=== PATIENT | male | born 1960 | race Caucasian/White ===

== ENCOUNTER 2017-04-18 22:03 | Emergency (ER) | payer MEDICAID, MEDICARE, OTHER ==
[~2017-04-18] VITALS: Ht 165.1 cm; Wt 81.5 kg
[~2017-04-18 22:03] MED LIST: ALBU8HFA IH; BENZ0.5T32 PO; BUPR100SR PO; BUSP10TA23 PO; CHOL200035 PO; PANT40TA25 PO; QUET200T PO; TIZA4TAB4 PO
[2017-04-18] MEDS ORDERED: BECL8.7A7 PO (23:00)
[2017-04-18] MEDS ORDERED: PHEN100C23 PO (23:00)
[2017-04-18 23:35] LABS: BASOPHILS # (AUTO) 0.07 K/uL (0.00-0.20); BASOPHILS % (AUTO) 0.7 % (0.0-2.0); EOSINOPHILS # (AUTO) 0.46 K/uL (0.00-0.70); EOSINOPHILS % (AUTO) 4.22 % (1.0-6.0); HEMATOCRIT 43.5 % (41-53); HEMOGLOBIN 14.7 g/dL (13.5-17.5); LYMPHOCYTES # (AUTO) 3.6 K/uL (1.0-4.8); LYMPHOCYTES % (AUTO) 33.4 % (22.0-44.0); MEAN CORPUSCULAR HEMOGLOBIN 32.7 pg (26.0-34.0); MEAN CORPUSCULAR HGB CONC 33.7 G/dL (31.0-37.0); MEAN CORPUSCULAR VOLUME 97 fL (80-100); MONOCYTES # (AUTO) 1.2 K/uL (0.1-1.0); NEUTROPHILS # (AUTO) 5.5 K/uL (1.8-7.7); NEUTROPHILS % (AUTO) 50.8 % (40.0-70.0); PLATELET COUNT (AUTO) 265 K/uL (150-450); RED BLOOD CELL COUNT(AUTO) 4.49 MIL/uL (4.50-5.90); RED CELL DISTRIBUTION WIDTH 15.3 % (11.5-14.5)
[2017-04-18 23:40] LABS: APPEARANCE,URINE CLEAR (CLEAR); BILIRUBIN,URINE NEGATIVE (NEGATIVE); GLUCOSE, URINE (UA) NEGATIVE (NEGATIVE); KETONES,URINE NEGATIVE (NEGATIVE); LEUKOCYTE ESTERASE ,URINE NEGATIVE (NEGATIVE); NITRATE,URINE NEGATIVE (NEGATIVE); OCCULT BLOOD,URINE NEGATIVE (NEGATIVE); PROTEIN,URINE NEGATIVE (NEGATIVE); UROBILINOGEN,URINE 0.2 mg/dL (<=1.0)
[2017-04-18 23:51] LABS: ANION GAP 10 mmol/L (8-16); CALCIUM, TOTAL 8.9 mg/dL (8.8-10.5); CARBON DIOXIDE 26 mmol/L (22-29); CHLORIDE 104 mmol/L (98-107); CREATININE 0.92 mg/dL (0.60-1.30); GLOMERULAR FILTR. RATE CALC > 60 mL/min (>60); GLUCOSE,RANDOM 108 mg/dL (70-110); POTASSIUM 4.1 mmol/L (3.5-5.1); SODIUM SERUM 140 mmol/L (136-145); UREA NITROGEN, BLOOD 16 mg/dL (7-18)
[2017-04-18 23:59] LABS: ALANINE AMINOTRANSFERASE 33 U/L (12-78); ALBUMIN 3.7 g/dL (3.4-5.0); ALKALINE PHOSPHATASE 85 U/L (46-116); ASPARTATE AMINOTRANSFERASE 25 U/L (15-37); BILIRUBIN,TOTAL 0.3 mg/dL (0.1-1.0); LIPASE 162 U/L (73-393); TOTAL PROTEIN, SERUM 7.7 g/dL (6.4-8.2)
[2017-04-19] MEDS ORDERED: ONDANSETRON HCL 4 MG/2 ML VIAL IVP ONE (01:00)
[2017-04-19] MEDS ORDERED: SODIUM CHLORIDE 0.9% 1,000 ML IV ONE (01:00)
[2017-04-19] MEDS ORDERED: MORPHINE SULFATE 4 MG/ML SYRINGE IVP ONE ×2 (01:00→03:00)
[2017-04-19 03:16] VITALS: BP 123/65
== END 2017-04-19 03:26 | disposition home or self-care (01) ==
LOC: EMS 22:05
DX: S39.012A Strain of muscle, fascia and tendon of lower back, initial encounter (principal); R11.0 Nausea; R19.7 Diarrhea, unspecified; J45.909 Unspecified asthma, uncomplicated; J44.9 Chronic obstructive pulmonary disease, unspecified; F17.210 Nicotine dependence, cigarettes, uncomplicated; Z88.6 Allergy status to analgesic agent; Z88.2 Allergy status to sulfonamides; Z91.010 Allergy to peanuts; W06.XXXA Fall from bed, initial encounter; Y93.89 Activity, other specified; Y92.89 Other specified places as the place of occurrence of the external cause; Y99.8 Other external cause status
CPT/HCPCS: 36415; 80053; 81003; 83690; 84484; 85025; 93005; 96361; 96374; 96375; 96376; 99285; J2270; J2405; J7030

== ENCOUNTER 2020-12-09 17:17 | Emergency (ER) | payer MEDICARE, MEDICAID ==
[~2020-12-09] VITALS: Ht 180.3 cm; Wt 108.2 kg
[~2020-12-09 17:17] MED LIST changes: +BECL8.7A7 PO; -BENZ0.5T32 PO; -BUPR100SR PO; -BUSP10TA23 PO; -CHOL200035 PO; -PANT40TA25 PO; +PHEN100C23 PO; -QUET200T PO; -TIZA4TAB4 PO
[2020-12-09 18:55] LABS: BASOPHILS % (AUTO) 0.6 % (0.0-2.0); EOSINOPHILS % (AUTO) 0.2 % (1.0-6.0); HEMATOCRIT 44.1 % (41-53); LYMPHOCYTES # (AUTO) 2.8 K/uL (1.0-4.8); LYMPHOCYTES % (AUTO) 21.4 % (22.0-44.0); MEAN CORPUSCULAR HEMOGLOBIN 27.3 pg (26.0-34.0); MEAN CORPUSCULAR HGB CONC 31.8 G/dL (31.0-37.0); MEAN CORPUSCULAR VOLUME 86 fL (80-100); MONOCYTES # (AUTO) 1.2 K/uL (0.1-1.0); MONOCYTES % (AUTO) 9.4 % (2.0-9.0); NEUTROPHILS % (AUTO) 68.4 % (40.0-70.0); PLATELET COUNT (AUTO) 627 K/uL (150-450); RED BLOOD CELL COUNT(AUTO) 5.13 MIL/uL (4.50-5.90); RED CELL DISTRIBUTION WIDTH 18.7 % (11.5-14.5)
[2020-12-09 19:22] LABS: ALANINE AMINOTRANSFERASE 29 U/L (12-78); ALBUMIN 4.1 g/dL (3.4-5.0); ALKALINE PHOSPHATASE 121 U/L (46-116); ANION GAP 15 mmol/L (8-16); ASPARTATE AMINOTRANSFERASE 19 U/L (15-37); BILIRUBIN,TOTAL 0.4 mg/dL (0.1-1.0); CALCIUM, TOTAL 8.9 mg/dL (8.8-10.5); CARBON DIOXIDE 21 mmol/L (22-29); CHLORIDE 103 mmol/L (98-107); CREATINE KINASE, TOTAL ONLY 90 U/L (39-308); CREATININE 1.06 mg/dL (0.60-1.30); GLOMERULAR FILTR. RATE CALC > 60 mL/min (>60); GLUCOSE,RANDOM 149 mg/dL (70-110); PHENYTOIN (DILANTIN) 0.9 mcg/mL (10.0-20.0); SODIUM SERUM 139 mmol/L (136-145); TOTAL PROTEIN, SERUM 9.1 g/dL (6.4-8.2); UREA NITROGEN, BLOOD 15 mg/dL (7-18)
[2020-12-09] MEDS ORDERED: HYDROCODONE/ACETAMINOPHEN 5-325 MG TABLET PO ONE (20:15)
[2020-12-09] MEDS ORDERED: ONDANSETRON HCL 4 MG TABLET PO ONE (20:30)
[2020-12-09] MEDS ORDERED: POTASSIUM CHLORIDE 20 MEQ ER TABLET PO ONE (20:45)
[2020-12-09 21:27] VITALS: BP 134/67
== END 2020-12-09 23:56 | disposition home or self-care (01) ==
LOC: EMS 17:19
DX: G89.29 Other chronic pain (principal); M25.511 Pain in right shoulder; J45.909 Unspecified asthma, uncomplicated; F31.9 Bipolar disorder, unspecified; F20.9 Schizophrenia, unspecified; W19.XXXA Unspecified fall, initial encounter; Y93.89 Activity, other specified; Y92.89 Other specified places as the place of occurrence of the external cause; Y99.8 Other external cause status
CPT/HCPCS: 36415; 70450; 72125; 73030; 80053; 80185; 82550; 85025; 99285; Q0162

== ENCOUNTER 2022-02-22 11:35 | Inpatient (IN) | payer MEDICARE, MEDICAID ==
[~2022-02-22] VITALS: Ht 180.3 cm; Wt 76.5 kg
[~2022-02-22 11:35] MED LIST changes: -ALBU8HFA IH; -BECL8.7A7 PO; +BENZ2TAB76 PO; +BUPR-72 PO; +DIVA-112 PO; -PHEN100C23 PO; +QUET200T30 PO
[2022-02-22 13:06] LABS: COVID AG,FIA SOURCE NASAL SWAB
[2022-02-22 13:10] LABS: BASOPHILS % (AUTO) 0.8 % (0.0-2.0); EOSINOPHILS % (AUTO) 0.9 % (1.0-6.0); HEMATOCRIT 40.1 % (41-53); HEMOGLOBIN 13.5 g/dL (13.5-17.5); LYMPHOCYTES # (AUTO) 1.7 K/uL (1.0-4.8); LYMPHOCYTES % (AUTO) 18.2 % (22.0-44.0); MEAN CORPUSCULAR HEMOGLOBIN 31.9 pg (26.0-34.0); MEAN CORPUSCULAR HGB CONC 33.5 G/dL (31.0-37.0); MEAN CORPUSCULAR VOLUME 95 fL (80-100); MONOCYTES # (AUTO) 0.9 K/uL (0.1-1.0); MONOCYTES % (AUTO) 9.5 % (2.0-9.0); NEUTROPHILS # (AUTO) 6.6 K/uL (1.8-7.7); NEUTROPHILS % (AUTO) 70.6 % (40.0-70.0); PLATELET COUNT (AUTO) 366 K/uL (150-450); RED BLOOD CELL COUNT(AUTO) 4.22 MIL/uL (4.50-5.90); RED CELL DISTRIBUTION WIDTH 14.7 % (11.5-14.5)
[2022-02-22 13:18] LABS: ANION GAP 14 mmol/L (8-16); CALCIUM, TOTAL 9.4 mg/dL (8.8-10.5); CARBON DIOXIDE 21 mmol/L (22-29); CHLORIDE 105 mmol/L (98-107); CREATININE 0.78 mg/dL (0.60-1.30); GLUCOSE,RANDOM 105 mg/dL (70-110); POTASSIUM 3.7 mmol/L (3.5-5.1); SODIUM SERUM 140 mmol/L (136-145); UREA NITROGEN, BLOOD 16 mg/dL (7-18)
[2022-02-22 13:19] LABS: GLOMERULAR FILTR. RATE CALC > 60 mL/min (>60)
[2022-02-22 13:23] LABS: ALANINE AMINOTRANSFERASE 21 U/L (12-78); ALBUMIN 3.8 g/dL (3.4-5.0); ALKALINE PHOSPHATASE 74 U/L (46-116); ASPARTATE AMINOTRANSFERASE 21 U/L (15-37); BILIRUBIN,TOTAL 0.7 mg/dL (0.1-1.0); TOTAL PROTEIN, SERUM 7.8 g/dL (6.4-8.2)
[2022-02-22 17:49] VITALS: BP 128/80
[2022-02-22] MEDS ORDERED: INFLUENZA VIRUS VACCINE QVS 2022-23 (6MO+)/PF 60 MCG/0.5 ML SYRINGE IM. ONE (18:45)
[2022-02-22] MEDS ORDERED: PNEUMOCOCCAL VACCINE POLYVALENT 0.5 ML VIAL [PPSV23] IM. ONE (18:45)
[2022-02-22] MEDS: LORazepam 2 MG TABLET PO PRN (20:55)
[2022-02-22] MEDS: HALOPERIDOL 5 MG TABLET PO PRN (20:56)
[2022-02-22 21:04] VITALS: BP 135/69
[2022-02-22] MEDS ORDERED: ACETAMINOPHEN 325 MG TABLET PO PRN (21:15)
[2022-02-22 23:07] VITALS: BP 126/72
[2022-02-23 08:00] VITALS: BP 130/76
[2022-02-23] MEDS ORDERED: BECLOMETHASONE DIPR HFA 80 MCG/PUFF 10.6 GM INHALER IH SCH (09:00)
[2022-02-23] MEDS: PHENYTOIN SODIUM 100 MG ER CAPSULE PO SCH ×2 (09:00→09:34)
[2022-02-23] MEDS: OMEPRAZOLE 20 MG CAPSULE PO SCH (09:33)
[2022-02-23] MEDS: FLUTICASONE/VILANTEROL 100-25 MCG/INH INHALER [14] IH SCH (09:35)
[2022-02-23] MEDS: MONTELUKAST SODIUM 10 MG TABLET PO SCH (09:35)
[2022-02-23] MEDS: DIVALPROEX SODIUM 500 MG DR TABLET PO SCH ×2 (11:06→16:06)
[2022-02-23] MEDS: BuPROPion HCL 150 MG SR TABLET PO SCH ×2 (11:31→17:42)
[2022-02-23] MEDS: BENZTROPINE MESYLATE 2 MG TABLET PO SCH (11:31)
[2022-02-23] MEDS ORDERED: GuaiFENesin/D-METHORPHAN [SUGAR-FREE] 200-20MG/10 ML SYRUP UDCUP PO PRN (14:30)
[2022-02-23] MEDS ORDERED: LOPERAMIDE HCL 2 MG CAPSULE PO PRN (14:30)
[2022-02-23] MEDS ORDERED: DOCUSATE SODIUM 100 MG CAPSULE PO PRN (14:30)
[2022-02-23] MEDS ORDERED: ONDANSETRON HCL 4 MG TABLET PO PRN (14:30)
[2022-02-23] MEDS ORDERED: NICOTINE 14 MG/24 HOUR PATCH TD PRN (14:30)
[2022-02-23] MEDS ORDERED: MAGNESIUM HYDROXIDE SUSPENSION 30 ML UDCUP PO PRN (14:30)
[2022-02-23] MEDS ORDERED: CloNIDine HCL 0.1 MG TABLET PO PRN (14:30)
[2022-02-23] MEDS ORDERED: PETROLATUM,WHITE 28 GM JELLY TP PRN (14:30)
[2022-02-23] MEDS: QUEtiapine FUMARATE 200 MG TABLET PO SCH (21:19)
[2022-02-24 08:30] VITALS: BP 99/60
[2022-02-24] MEDS: OMEPRAZOLE 20 MG CAPSULE PO SCH (08:56)
[2022-02-24] MEDS: BuPROPion HCL 150 MG SR TABLET PO SCH ×2 (08:56→16:48)
[2022-02-24] MEDS: DIVALPROEX SODIUM 500 MG DR TABLET PO SCH ×3 (08:56→17:00)
[2022-02-24] MEDS: MONTELUKAST SODIUM 10 MG TABLET PO SCH (08:57)
[2022-02-24] MEDS: FLUTICASONE/VILANTEROL 100-25 MCG/INH INHALER [14] IH SCH (08:57)
[2022-02-24] MEDS: BENZTROPINE MESYLATE 2 MG TABLET PO SCH (08:58)
[2022-02-24] MEDS: PHENYTOIN SODIUM 100 MG ER CAPSULE PO SCH (09:00)
[2022-02-24 16:00] VITALS: BP 110/63
[2022-02-24 16:56] VITALS: BP 110/63
[2022-02-24] MEDS: LORazepam 2 MG TABLET PO PRN (18:27)
[2022-02-24] MEDS: QUEtiapine FUMARATE 200 MG TABLET PO SCH (20:59)
[2022-02-25] MEDS: BENZTROPINE MESYLATE 2 MG TABLET PO SCH (08:30)
[2022-02-25] MEDS: FLUTICASONE/VILANTEROL 100-25 MCG/INH INHALER [14] IH SCH (08:30)
[2022-02-25] MEDS: OMEPRAZOLE 20 MG CAPSULE PO SCH (08:31)
[2022-02-25] MEDS: PHENYTOIN SODIUM 100 MG ER CAPSULE PO SCH (08:31)
[2022-02-25] MEDS: BuPROPion HCL 150 MG SR TABLET PO SCH ×2 (08:31→16:48)
[2022-02-25] MEDS: DIVALPROEX SODIUM 500 MG DR TABLET PO SCH ×2 (08:31→16:49)
[2022-02-25] MEDS: MONTELUKAST SODIUM 10 MG TABLET PO SCH (08:31)
[2022-02-25] MEDS: LORazepam 2 MG TABLET PO PRN ×2 (14:38→20:05)
[2022-02-25 16:00] VITALS: BP 98/65
[2022-02-25] MEDS: QUEtiapine FUMARATE 200 MG TABLET PO SCH (20:05)
[2022-02-26] MEDS: DIVALPROEX SODIUM 500 MG DR TABLET PO SCH ×3 (09:00→17:00)
[2022-02-26] MEDS: BENZTROPINE MESYLATE 2 MG TABLET PO SCH (10:52)
[2022-02-26] MEDS: MONTELUKAST SODIUM 10 MG TABLET PO SCH (10:52)
[2022-02-26] MEDS: PHENYTOIN SODIUM 100 MG ER CAPSULE PO SCH (10:52)
[2022-02-26] MEDS: FLUTICASONE/VILANTEROL 100-25 MCG/INH INHALER [14] IH SCH (10:53)
[2022-02-26] MEDS: BuPROPion HCL 150 MG SR TABLET PO SCH ×2 (10:53→17:11)
[2022-02-26] MEDS: LORazepam 2 MG TABLET PO PRN ×2 (10:54→17:12)
[2022-02-26] MEDS: OMEPRAZOLE 20 MG CAPSULE PO SCH (10:54)
[2022-02-26] MEDS: QUEtiapine FUMARATE 200 MG TABLET PO SCH (21:56)
[2022-02-27] MEDS: PHENYTOIN SODIUM 100 MG ER CAPSULE PO SCH (08:57)
[2022-02-27] MEDS: BuPROPion HCL 150 MG SR TABLET PO SCH ×2 (08:57→16:08)
[2022-02-27] MEDS: BENZTROPINE MESYLATE 2 MG TABLET PO SCH (08:57)
[2022-02-27] MEDS: MONTELUKAST SODIUM 10 MG TABLET PO SCH (08:57)
[2022-02-27] MEDS: OMEPRAZOLE 20 MG CAPSULE PO SCH (08:59)
[2022-02-27] MEDS: DIVALPROEX SODIUM 500 MG DR TABLET PO SCH ×2 (08:59→16:08)
[2022-02-27] MEDS: FLUTICASONE/VILANTEROL 100-25 MCG/INH INHALER [14] IH SCH (10:27)
[2022-02-27] MEDS: LORazepam 2 MG TABLET PO PRN (14:37)
[2022-02-27] MEDS: QUEtiapine FUMARATE 200 MG TABLET PO SCH (22:00)
[2022-02-28 08:00] VITALS: BP 117/81
[2022-02-28 09:12] LABS: COVID AG,FIA SOURCE NASAL SWAB
[2022-02-28] MEDS: PHENYTOIN SODIUM 100 MG ER CAPSULE PO SCH (09:51)
[2022-02-28] MEDS: LORazepam 2 MG TABLET PO PRN ×3 (09:51→18:31)
[2022-02-28] MEDS: BENZTROPINE MESYLATE 2 MG TABLET PO SCH (09:51)
[2022-02-28] MEDS: OMEPRAZOLE 20 MG CAPSULE PO SCH (09:51)
[2022-02-28] MEDS: DIVALPROEX SODIUM 500 MG DR TABLET PO SCH ×2 (09:51→17:26)
[2022-02-28] MEDS: ACETAMINOPHEN 325 MG TABLET PO PRN (09:51)
[2022-02-28] MEDS: MONTELUKAST SODIUM 10 MG TABLET PO SCH (09:51)
[2022-02-28] MEDS: BuPROPion HCL 150 MG SR TABLET PO SCH ×2 (09:51→17:27)
[2022-02-28] MEDS: FLUTICASONE/VILANTEROL 100-25 MCG/INH INHALER [14] IH SCH (09:54)
[2022-02-28] MEDS: QUEtiapine FUMARATE 200 MG TABLET PO SCH (20:39)
[2022-03-01 08:32] VITALS: BP 92/54
[2022-03-01] MEDS: DIVALPROEX SODIUM 500 MG DR TABLET PO SCH ×2 (09:00→17:32)
[2022-03-01] MEDS: OMEPRAZOLE 20 MG CAPSULE PO SCH (10:45)
[2022-03-01] MEDS: PHENYTOIN SODIUM 100 MG ER CAPSULE PO SCH (10:45)
[2022-03-01] MEDS: MONTELUKAST SODIUM 10 MG TABLET PO SCH (10:45)
[2022-03-01] MEDS: MAG HYDROX/AL HYDROX/SIMETH ES 30 ML SUSPENSION UDCUP PO PRN (10:46)
[2022-03-01] MEDS: BuPROPion HCL 150 MG SR TABLET PO SCH ×2 (10:46→17:32)
[2022-03-01] MEDS: FLUTICASONE/VILANTEROL 100-25 MCG/INH INHALER [14] IH SCH (10:47)
[2022-03-01] MEDS: BENZTROPINE MESYLATE 2 MG TABLET PO SCH (10:49)
[2022-03-01 12:25] VITALS: BP 139/98
[2022-03-01] MEDS: LORazepam 2 MG TABLET PO PRN ×3 (12:29→20:31)
[2022-03-01 17:28] VITALS: BP 136/90
[2022-03-01] MEDS: TraMADol HCL 50 MG TABLET PO PRN (17:31)
[2022-03-01] MEDS: QUEtiapine FUMARATE 200 MG TABLET PO SCH (20:31)
[2022-03-01] MEDS: ZOLPIDEM TARTRATE 10 MG TABLET PO PRN (22:38)
[2022-03-02] MEDS: BENZTROPINE MESYLATE 2 MG TABLET PO SCH (08:17)
[2022-03-02] MEDS: BuPROPion HCL 150 MG SR TABLET PO SCH ×2 (08:17→16:11)
[2022-03-02] MEDS: DIVALPROEX SODIUM 500 MG DR TABLET PO SCH ×2 (08:17→16:11)
[2022-03-02] MEDS: MONTELUKAST SODIUM 10 MG TABLET PO SCH (08:17)
[2022-03-02] MEDS: PHENYTOIN SODIUM 100 MG ER CAPSULE PO SCH (08:17)
[2022-03-02] MEDS: OMEPRAZOLE 20 MG CAPSULE PO SCH (08:17)
[2022-03-02] MEDS: FLUTICASONE/VILANTEROL 100-25 MCG/INH INHALER [14] IH SCH (08:18)
[2022-03-02 08:48] VITALS: BP 103/69
[2022-03-02] MEDS: QUEtiapine FUMARATE 100 MG TABLET PO SCH (09:29)
[2022-03-02 15:59] VITALS: BP 119/84
[2022-03-02 16:01] VITALS: BP 119/84
[2022-03-02] MEDS: ACETAMINOPHEN 325 MG TABLET PO PRN (16:11)
[2022-03-02] MEDS: LORazepam 2 MG TABLET PO PRN (18:44)
[2022-03-02] MEDS: ZOLPIDEM TARTRATE 10 MG TABLET PO PRN (20:48)
[2022-03-02] MEDS: QUEtiapine FUMARATE 200 MG TABLET PO SCH (20:48)
[2022-03-03 08:07] VITALS: BP 132/82
[2022-03-03] MEDS: PHENYTOIN SODIUM 100 MG ER CAPSULE PO SCH (09:08)
[2022-03-03] MEDS: OMEPRAZOLE 20 MG CAPSULE PO SCH (09:08)
[2022-03-03] MEDS: FLUTICASONE/VILANTEROL 100-25 MCG/INH INHALER [14] IH SCH (09:08)
[2022-03-03] MEDS: DIVALPROEX SODIUM 500 MG DR TABLET PO SCH ×2 (09:08→16:03)
[2022-03-03] MEDS: BuPROPion HCL 150 MG SR TABLET PO SCH ×2 (09:08→16:03)
[2022-03-03] MEDS: BENZTROPINE MESYLATE 2 MG TABLET PO SCH (09:08)
[2022-03-03] MEDS: QUEtiapine FUMARATE 100 MG TABLET PO SCH (09:08)
[2022-03-03] MEDS: MONTELUKAST SODIUM 10 MG TABLET PO SCH (09:09)
[2022-03-03] MEDS: LORazepam 2 MG TABLET PO PRN ×3 (09:10→21:06)
[2022-03-03 12:09] VITALS: BP 128/84
[2022-03-03] MEDS: TraMADol HCL 50 MG TABLET PO PRN (12:09)
[2022-03-03] MEDS: HALOPERIDOL 5 MG TABLET PO PRN ×2 (16:04→21:06)
[2022-03-03 16:08] VITALS: BP 134/78
[2022-03-03] MEDS: QUEtiapine FUMARATE 200 MG TABLET PO SCH (21:06)
[2022-03-03] MEDS: ZOLPIDEM TARTRATE 10 MG TABLET PO PRN (22:00)
[2022-03-04] MEDS: QUEtiapine FUMARATE 100 MG TABLET PO SCH (09:21)
[2022-03-04] MEDS: BENZTROPINE MESYLATE 2 MG TABLET PO SCH (09:21)
[2022-03-04] MEDS: PHENYTOIN SODIUM 100 MG ER CAPSULE PO SCH (09:21)
[2022-03-04] MEDS: FLUTICASONE/VILANTEROL 100-25 MCG/INH INHALER [14] IH SCH (09:21)
[2022-03-04] MEDS: DIVALPROEX SODIUM 500 MG DR TABLET PO SCH ×2 (09:21→16:26)
[2022-03-04] MEDS: MONTELUKAST SODIUM 10 MG TABLET PO SCH (09:21)
[2022-03-04] MEDS: BuPROPion HCL 150 MG SR TABLET PO SCH ×2 (09:21→16:26)
[2022-03-04] MEDS: OMEPRAZOLE 20 MG CAPSULE PO SCH (09:21)
[2022-03-04 10:02] VITALS: BP 121/69
[2022-03-04] MEDS: LORazepam 2 MG TABLET PO PRN (12:49)
[2022-03-04 16:16] VITALS: BP 143/66
[2022-03-04 19:12] VITALS: BP 131/73
[2022-03-04] MEDS: TraMADol HCL 50 MG TABLET PO PRN (19:12)
[2022-03-04] MEDS: QUEtiapine FUMARATE 200 MG TABLET PO SCH (20:32)
[2022-03-04] MEDS: MAG HYDROX/AL HYDROX/SIMETH ES 30 ML SUSPENSION UDCUP PO PRN (20:40)
[2022-03-05 02:57] VITALS: BP 130/83
[2022-03-05] MEDS: TraMADol HCL 50 MG TABLET PO PRN ×2 (02:57→20:56)
[2022-03-05 07:30] VITALS: BP 111/73
[2022-03-05] MEDS: PHENYTOIN SODIUM 100 MG ER CAPSULE PO SCH (08:59)
[2022-03-05] MEDS: BuPROPion HCL 150 MG SR TABLET PO SCH ×2 (08:59→16:13)
[2022-03-05 09:00] VITALS: BP 111/73
[2022-03-05] MEDS: MONTELUKAST SODIUM 10 MG TABLET PO SCH (09:00)
[2022-03-05] MEDS: FLUTICASONE/VILANTEROL 100-25 MCG/INH INHALER [14] IH SCH (09:00)
[2022-03-05] MEDS: OMEPRAZOLE 20 MG CAPSULE PO SCH (09:02)
[2022-03-05] MEDS: DIVALPROEX SODIUM 500 MG DR TABLET PO SCH ×2 (09:02→16:12)
[2022-03-05] MEDS: QUEtiapine FUMARATE 100 MG TABLET PO SCH (09:02)
[2022-03-05] MEDS: BENZTROPINE MESYLATE 2 MG TABLET PO SCH (09:06)
[2022-03-05] MEDS: LORazepam 2 MG TABLET PO PRN ×2 (11:09→18:37)
[2022-03-05] MEDS: QUEtiapine FUMARATE 200 MG TABLET PO SCH (20:55)
[2022-03-05] MEDS: ZOLPIDEM TARTRATE 10 MG TABLET PO PRN (20:55)
[2022-03-05 20:56] VITALS: BP 119/77
[2022-03-06] MEDS: LORazepam 2 MG TABLET PO PRN ×3 (05:09→17:44)
[2022-03-06] MEDS: OMEPRAZOLE 20 MG CAPSULE PO SCH (08:28)
[2022-03-06] MEDS: FLUTICASONE/VILANTEROL 100-25 MCG/INH INHALER [14] IH SCH (08:28)
[2022-03-06] MEDS: DIVALPROEX SODIUM 500 MG DR TABLET PO SCH ×2 (08:29→16:07)
[2022-03-06] MEDS: QUEtiapine FUMARATE 100 MG TABLET PO SCH (08:29)
[2022-03-06] MEDS: PHENYTOIN SODIUM 100 MG ER CAPSULE PO SCH (08:29)
[2022-03-06] MEDS: MONTELUKAST SODIUM 10 MG TABLET PO SCH (08:30)
[2022-03-06] MEDS: BuPROPion HCL 150 MG SR TABLET PO SCH ×2 (08:30→16:07)
[2022-03-06] MEDS: BENZTROPINE MESYLATE 2 MG TABLET PO SCH (08:30)
[2022-03-06 09:53] VITALS: BP 116/77
[2022-03-06] MEDS: TraMADol HCL 50 MG TABLET PO PRN ×2 (10:28→17:25)
[2022-03-06 10:30] VITALS: BP 123/85
[2022-03-06 11:30] VITALS: BP 131/97
[2022-03-06] MEDS: HALOPERIDOL 5 MG TABLET PO PRN (13:40)
[2022-03-06 17:00] VITALS: BP 134/66
[2022-03-06 17:20] VITALS: BP 134/66
[2022-03-06] MEDS: QUEtiapine FUMARATE 200 MG TABLET PO SCH (21:16)
[2022-03-07] VITALS (7 sets, daily range): BP systolic 122–155; BP diastolic 70–83
[2022-03-07] MEDS: LORazepam 2 MG TABLET PO PRN ×2 (06:05→20:34)
[2022-03-07] MEDS: TraMADol HCL 50 MG TABLET PO PRN ×3 (06:06→23:34)
[2022-03-07] MEDS: FLUTICASONE/VILANTEROL 100-25 MCG/INH INHALER [14] IH SCH (09:01)
[2022-03-07] MEDS: MONTELUKAST SODIUM 10 MG TABLET PO SCH (09:01)
[2022-03-07] MEDS: BuPROPion HCL 150 MG SR TABLET PO SCH ×2 (09:01→16:30)
[2022-03-07] MEDS: QUEtiapine FUMARATE 100 MG TABLET PO SCH (09:01)
[2022-03-07] MEDS: PHENYTOIN SODIUM 100 MG ER CAPSULE PO SCH (09:01)
[2022-03-07] MEDS: BENZTROPINE MESYLATE 2 MG TABLET PO SCH (09:01)
[2022-03-07] MEDS: OMEPRAZOLE 20 MG CAPSULE PO SCH (09:01)
[2022-03-07] MEDS: DIVALPROEX SODIUM 500 MG DR TABLET PO SCH ×2 (09:02→16:31)
[2022-03-07] MEDS: QUEtiapine FUMARATE 200 MG TABLET PO SCH (21:53)
[2022-03-08 05:59] LABS: COVID AG,FIA SOURCE NASAL SWAB
[2022-03-08] MEDS: LORazepam 2 MG TABLET PO PRN ×2 (06:29→12:51)
[2022-03-08] MEDS: OMEPRAZOLE 20 MG CAPSULE PO SCH (08:28)
[2022-03-08] MEDS: BENZTROPINE MESYLATE 2 MG TABLET PO SCH (08:28)
[2022-03-08] MEDS: DIVALPROEX SODIUM 500 MG DR TABLET PO SCH ×2 (08:28→16:07)
[2022-03-08] MEDS: PHENYTOIN SODIUM 100 MG ER CAPSULE PO SCH (08:28)
[2022-03-08] MEDS: QUEtiapine FUMARATE 100 MG TABLET PO SCH (08:28)
[2022-03-08] MEDS: MONTELUKAST SODIUM 10 MG TABLET PO SCH (08:28)
[2022-03-08] MEDS: FLUTICASONE/VILANTEROL 100-25 MCG/INH INHALER [14] IH SCH (08:28)
[2022-03-08] MEDS: BuPROPion HCL 150 MG SR TABLET PO SCH ×2 (08:28→16:07)
[2022-03-08 09:23] VITALS: BP 127/82
[2022-03-08 16:18] VITALS: BP 104/66
[2022-03-08] MEDS: QUEtiapine FUMARATE 200 MG TABLET PO SCH (21:05)
[2022-03-09 00:41] VITALS: BP 115/73
[2022-03-09] MEDS: LORazepam 2 MG TABLET PO PRN ×3 (00:51→21:17)
[2022-03-09] MEDS: TraMADol HCL 50 MG TABLET PO PRN ×3 (00:51→21:17)
[2022-03-09] MEDS: PHENYTOIN SODIUM 100 MG ER CAPSULE PO SCH (08:26)
[2022-03-09] MEDS: MONTELUKAST SODIUM 10 MG TABLET PO SCH (08:26)
[2022-03-09] MEDS: OMEPRAZOLE 20 MG CAPSULE PO SCH (08:26)
[2022-03-09] MEDS: QUEtiapine FUMARATE 100 MG TABLET PO SCH (08:26)
[2022-03-09] MEDS: BuPROPion HCL 150 MG SR TABLET PO SCH ×2 (08:26→16:05)
[2022-03-09] MEDS: BENZTROPINE MESYLATE 2 MG TABLET PO SCH (08:26)
[2022-03-09] MEDS: DIVALPROEX SODIUM 500 MG DR TABLET PO SCH ×2 (08:26→16:05)
[2022-03-09] MEDS: FLUTICASONE/VILANTEROL 100-25 MCG/INH INHALER [14] IH SCH (08:27)
[2022-03-09 09:00] VITALS: BP 110/64
[2022-03-09 12:41] VITALS: BP 116/78
[2022-03-09] MEDS ORDERED: OMEP20 PO (14:58)
[2022-03-09] MEDS ORDERED: FLUT1AER IH (14:58)
[2022-03-09] MEDS ORDERED: PHEN100C23 PO (14:58)
[2022-03-09] MEDS ORDERED: MONT-35 PO (14:58)
[2022-03-09] MEDS ORDERED: QUET100T PO (14:59)
[2022-03-09] MEDS ORDERED: BENZ2TAB76 PO (16:17)
[2022-03-09] MEDS ORDERED: DIVA-112 PO (16:17)
[2022-03-09] MEDS ORDERED: QUET100T34 PO (16:17)
[2022-03-09] MEDS ORDERED: BUPR-113 PO (16:17)
[2022-03-09] MEDS ORDERED: QUET200T30 PO (16:17)
[2022-03-09] MEDS: QUEtiapine FUMARATE 200 MG TABLET PO SCH (21:03)
[2022-03-09 21:05] VITALS: BP 117/77
[2022-03-10] MEDS: QUEtiapine FUMARATE 100 MG TABLET PO SCH (08:34)
[2022-03-10] MEDS: DIVALPROEX SODIUM 500 MG DR TABLET PO SCH ×2 (08:34→15:56)
[2022-03-10] MEDS: BENZTROPINE MESYLATE 2 MG TABLET PO SCH (08:34)
[2022-03-10] MEDS: PHENYTOIN SODIUM 100 MG ER CAPSULE PO SCH (08:34)
[2022-03-10] MEDS: OMEPRAZOLE 20 MG CAPSULE PO SCH (08:34)
[2022-03-10] MEDS: BuPROPion HCL 150 MG SR TABLET PO SCH ×2 (08:34→15:56)
[2022-03-10] MEDS: MONTELUKAST SODIUM 10 MG TABLET PO SCH (08:34)
[2022-03-10] MEDS: FLUTICASONE/VILANTEROL 100-25 MCG/INH INHALER [14] IH SCH (08:35)
[2022-03-10] MEDS: LORazepam 2 MG TABLET PO PRN ×2 (09:31→21:29)
[2022-03-10 10:01] VITALS: BP 112/65
[2022-03-10] MEDS: TraMADol HCL 50 MG TABLET PO PRN ×2 (15:06→21:28)
[2022-03-10 16:54] VITALS: BP 120/74
[2022-03-10] MEDS: QUEtiapine FUMARATE 200 MG TABLET PO SCH (20:48)
[2022-03-10 21:26] VITALS: BP 128/78
[2022-03-11 06:50] VITALS: BP 135/72
[2022-03-11] MEDS: TraMADol HCL 50 MG TABLET PO PRN ×2 (06:50→13:49)
[2022-03-11] MEDS: BuPROPion HCL 150 MG SR TABLET PO SCH ×2 (08:23→16:07)
[2022-03-11] MEDS: PHENYTOIN SODIUM 100 MG ER CAPSULE PO SCH (08:23)
[2022-03-11] MEDS: BENZTROPINE MESYLATE 2 MG TABLET PO SCH (08:23)
[2022-03-11] MEDS: FLUTICASONE/VILANTEROL 100-25 MCG/INH INHALER [14] IH SCH (08:23)
[2022-03-11] MEDS: MONTELUKAST SODIUM 10 MG TABLET PO SCH (08:23)
[2022-03-11] MEDS: QUEtiapine FUMARATE 100 MG TABLET PO SCH (08:24)
[2022-03-11] MEDS: OMEPRAZOLE 20 MG CAPSULE PO SCH (08:24)
[2022-03-11] MEDS: DIVALPROEX SODIUM 500 MG DR TABLET PO SCH ×2 (08:24→16:07)
[2022-03-11 08:50] VITALS: BP 124/83
[2022-03-11] MEDS: LORazepam 2 MG TABLET PO PRN ×2 (10:31→20:14)
[2022-03-11] MEDS: QUEtiapine FUMARATE 200 MG TABLET PO SCH (21:00)
[2022-03-12 02:56] VITALS: BP 133/74
[2022-03-12] MEDS: TraMADol HCL 50 MG TABLET PO PRN ×2 (02:56→22:58)
[2022-03-12] MEDS: LORazepam 2 MG TABLET PO PRN (02:56)
[2022-03-12] MEDS: MONTELUKAST SODIUM 10 MG TABLET PO SCH (08:06)
[2022-03-12] MEDS: BENZTROPINE MESYLATE 2 MG TABLET PO SCH (08:06)
[2022-03-12] MEDS: BuPROPion HCL 150 MG SR TABLET PO SCH ×2 (08:07→16:19)
[2022-03-12] MEDS: PHENYTOIN SODIUM 100 MG ER CAPSULE PO SCH (08:07)
[2022-03-12] MEDS: DIVALPROEX SODIUM 500 MG DR TABLET PO SCH ×2 (08:08→16:19)
[2022-03-12] MEDS: FLUTICASONE/VILANTEROL 100-25 MCG/INH INHALER [14] IH SCH (08:08)
[2022-03-12] MEDS: QUEtiapine FUMARATE 100 MG TABLET PO SCH (08:08)
[2022-03-12] MEDS: OMEPRAZOLE 20 MG CAPSULE PO SCH (09:10)
[2022-03-12 09:59] VITALS: BP 115/70
[2022-03-12 16:51] VITALS: BP 107/66
[2022-03-12] MEDS: QUEtiapine FUMARATE 200 MG TABLET PO SCH (20:36)
[2022-03-12 22:58] VITALS: BP 131/73
[2022-03-12 23:58] VITALS: BP 131/73
[2022-03-13] MEDS: LORazepam 2 MG TABLET PO PRN ×2 (00:07→20:37)
[2022-03-13 08:30] VITALS: BP 110/71
[2022-03-13] MEDS: BENZTROPINE MESYLATE 2 MG TABLET PO SCH (08:39)
[2022-03-13] MEDS: FLUTICASONE/VILANTEROL 100-25 MCG/INH INHALER [14] IH SCH (08:39)
[2022-03-13] MEDS: DIVALPROEX SODIUM 500 MG DR TABLET PO SCH ×2 (08:39→16:35)
[2022-03-13] MEDS: BuPROPion HCL 150 MG SR TABLET PO SCH ×2 (08:40→16:35)
[2022-03-13] MEDS: QUEtiapine FUMARATE 100 MG TABLET PO SCH (08:40)
[2022-03-13] MEDS: PHENYTOIN SODIUM 100 MG ER CAPSULE PO SCH (08:40)
[2022-03-13] MEDS: OMEPRAZOLE 20 MG CAPSULE PO SCH (08:40)
[2022-03-13] MEDS: MONTELUKAST SODIUM 10 MG TABLET PO SCH (08:40)
[2022-03-13 16:44] VITALS: BP 140/83
[2022-03-13] MEDS: TraMADol HCL 50 MG TABLET PO PRN ×2 (16:44→22:55)
[2022-03-13] MEDS: QUEtiapine FUMARATE 200 MG TABLET PO SCH (20:38)
[2022-03-13 22:52] VITALS: BP 120/80
[2022-03-14] VITALS (10 sets, daily range): BP systolic 100–131; BP diastolic 64–88
[2022-03-14] MEDS: MONTELUKAST SODIUM 10 MG TABLET PO SCH (08:36)
[2022-03-14] MEDS: TraMADol HCL 50 MG TABLET PO PRN ×2 (08:36→16:41)
[2022-03-14] MEDS: PHENYTOIN SODIUM 100 MG ER CAPSULE PO SCH (08:37)
[2022-03-14] MEDS: BENZTROPINE MESYLATE 2 MG TABLET PO SCH (08:37)
[2022-03-14] MEDS: BuPROPion HCL 150 MG SR TABLET PO SCH ×2 (08:37→16:42)
[2022-03-14] MEDS: OMEPRAZOLE 20 MG CAPSULE PO SCH (08:37)
[2022-03-14] MEDS: DIVALPROEX SODIUM 500 MG DR TABLET PO SCH ×2 (08:38→16:41)
[2022-03-14] MEDS: ALBUTEROL SULFATE HFA 90 MCG/PUFF 8 GM INHALER IH PRN (08:43)
[2022-03-14] MEDS: QUEtiapine FUMARATE 100 MG TABLET PO SCH (08:44)
[2022-03-14] MEDS: LORazepam 2 MG TABLET PO PRN ×3 (10:05→18:26)
[2022-03-14] MEDS: FLUTICASONE/VILANTEROL 100-25 MCG/INH INHALER [14] IH SCH (14:27)
[2022-03-14] MEDS: QUEtiapine FUMARATE 200 MG TABLET PO SCH (21:03)
[2022-03-15 06:35] LABS: COVID AG,FIA SOURCE NASAL SWAB
[2022-03-15] MEDS: FLUTICASONE/VILANTEROL 100-25 MCG/INH INHALER [14] IH SCH (08:33)
[2022-03-15] MEDS: BuPROPion HCL 150 MG SR TABLET PO SCH ×2 (08:33→16:06)
[2022-03-15] MEDS: QUEtiapine FUMARATE 100 MG TABLET PO SCH (08:34)
[2022-03-15] MEDS: PHENYTOIN SODIUM 100 MG ER CAPSULE PO SCH (08:34)
[2022-03-15] MEDS: OMEPRAZOLE 20 MG CAPSULE PO SCH (08:34)
[2022-03-15] MEDS: BENZTROPINE MESYLATE 2 MG TABLET PO SCH (08:34)
[2022-03-15] MEDS: DIVALPROEX SODIUM 500 MG DR TABLET PO SCH ×2 (08:34→16:06)
[2022-03-15] MEDS: MONTELUKAST SODIUM 10 MG TABLET PO SCH (08:34)
[2022-03-15] MEDS: LORazepam 2 MG TABLET PO PRN ×2 (08:35→16:06)
[2022-03-15 09:10] VITALS: BP 120/80
[2022-03-15] MEDS: TraMADol HCL 50 MG TABLET PO PRN ×2 (09:14→16:06)
[2022-03-15 16:03] VITALS: BP 110/80
[2022-03-15] MEDS: QUEtiapine FUMARATE 200 MG TABLET PO SCH (20:44)
[2022-03-16 06:26] VITALS: BP 110/75
[2022-03-16] MEDS: TraMADol HCL 50 MG TABLET PO PRN ×2 (06:29→17:20)
[2022-03-16] MEDS: FLUTICASONE/VILANTEROL 100-25 MCG/INH INHALER [14] IH SCH (08:17)
[2022-03-16] MEDS: BuPROPion HCL 150 MG SR TABLET PO SCH ×2 (08:17→16:04)
[2022-03-16] MEDS: MONTELUKAST SODIUM 10 MG TABLET PO SCH (08:18)
[2022-03-16] MEDS: BENZTROPINE MESYLATE 2 MG TABLET PO SCH (08:18)
[2022-03-16] MEDS: DIVALPROEX SODIUM 500 MG DR TABLET PO SCH ×2 (08:18→16:04)
[2022-03-16] MEDS: OMEPRAZOLE 20 MG CAPSULE PO SCH (08:18)
[2022-03-16] MEDS: QUEtiapine FUMARATE 100 MG TABLET PO SCH (08:18)
[2022-03-16] MEDS: PHENYTOIN SODIUM 100 MG ER CAPSULE PO SCH (08:18)
[2022-03-16 09:23] VITALS: BP 135/87
[2022-03-16 16:47] VITALS: BP 100/58
[2022-03-16 17:20] VITALS: BP 126/62
[2022-03-16] MEDS: HALOPERIDOL 5 MG TABLET PO PRN (20:19)
[2022-03-16] MEDS: QUEtiapine FUMARATE 200 MG TABLET PO SCH (20:19)
[2022-03-16] MEDS: HydrOXYzine PAMOATE 50 MG CAPSULE PO PRN (20:19)
[2022-03-16] MEDS: ZOLPIDEM TARTRATE 10 MG TABLET PO PRN (22:00)
[2022-03-17] MEDS: HydrOXYzine PAMOATE 50 MG CAPSULE PO PRN ×3 (08:15→20:24)
[2022-03-17 08:34] VITALS: BP 122/81
[2022-03-17] MEDS: BuPROPion HCL 150 MG SR TABLET PO SCH ×2 (08:39→16:24)
[2022-03-17] MEDS: MONTELUKAST SODIUM 10 MG TABLET PO SCH (08:39)
[2022-03-17] MEDS: TraMADol HCL 50 MG TABLET PO PRN ×2 (08:39→16:25)
[2022-03-17] MEDS: BENZTROPINE MESYLATE 2 MG TABLET PO SCH (08:39)
[2022-03-17] MEDS: QUEtiapine FUMARATE 100 MG TABLET PO SCH (08:39)
[2022-03-17] MEDS: OMEPRAZOLE 20 MG CAPSULE PO SCH (08:39)
[2022-03-17] MEDS: PHENYTOIN SODIUM 100 MG ER CAPSULE PO SCH (08:39)
[2022-03-17] MEDS: FLUTICASONE/VILANTEROL 100-25 MCG/INH INHALER [14] IH SCH (08:39)
[2022-03-17] MEDS: DIVALPROEX SODIUM 500 MG DR TABLET PO SCH ×2 (09:00→17:00)
[2022-03-17] MEDS: QUEtiapine FUMARATE 200 MG TABLET PO SCH (20:24)
[2022-03-17] MEDS: HALOPERIDOL 5 MG TABLET PO PRN (20:24)
[2022-03-17] MEDS: ZOLPIDEM TARTRATE 10 MG TABLET PO PRN (21:17)
[2022-03-18] MEDS: DIVALPROEX SODIUM 500 MG DR TABLET PO SCH ×2 (09:00→16:06)
[2022-03-18 09:15] VITALS: BP 102/68
[2022-03-18] MEDS: BuPROPion HCL 150 MG SR TABLET PO SCH ×2 (09:19→16:06)
[2022-03-18] MEDS: PHENYTOIN SODIUM 100 MG ER CAPSULE PO SCH (09:20)
[2022-03-18] MEDS: FLUTICASONE/VILANTEROL 100-25 MCG/INH INHALER [14] IH SCH (09:20)
[2022-03-18] MEDS: BENZTROPINE MESYLATE 2 MG TABLET PO SCH (09:20)
[2022-03-18] MEDS: MONTELUKAST SODIUM 10 MG TABLET PO SCH (09:20)
[2022-03-18] MEDS: QUEtiapine FUMARATE 100 MG TABLET PO SCH (09:22)
[2022-03-18] MEDS: OMEPRAZOLE 20 MG CAPSULE PO SCH (09:22)
[2022-03-18] MEDS: TraMADol HCL 50 MG TABLET PO PRN ×2 (10:21→18:07)
[2022-03-18 16:35] VITALS: BP 107/69
[2022-03-18 18:07] VITALS: BP 112/79
[2022-03-18] MEDS: QUEtiapine FUMARATE 200 MG TABLET PO SCH (20:19)
[2022-03-18] MEDS: HydrOXYzine PAMOATE 50 MG CAPSULE PO PRN (23:16)
[2022-03-19 01:00] VITALS: BP 111/75
[2022-03-19] MEDS: TraMADol HCL 50 MG TABLET PO PRN ×2 (01:05→15:16)
[2022-03-19] MEDS: MAG HYDROX/AL HYDROX/SIMETH ES 30 ML SUSPENSION UDCUP PO PRN (01:36)
[2022-03-19 04:00] VITALS: BP 111/69
[2022-03-19] MEDS: BuPROPion HCL 150 MG SR TABLET PO SCH ×2 (08:36→16:37)
[2022-03-19] MEDS: FLUTICASONE/VILANTEROL 100-25 MCG/INH INHALER [14] IH SCH (08:36)
[2022-03-19] MEDS: MONTELUKAST SODIUM 10 MG TABLET PO SCH (08:36)
[2022-03-19] MEDS: BENZTROPINE MESYLATE 2 MG TABLET PO SCH (08:37)
[2022-03-19] MEDS: PHENYTOIN SODIUM 100 MG ER CAPSULE PO SCH (08:37)
[2022-03-19] MEDS: QUEtiapine FUMARATE 100 MG TABLET PO SCH (08:38)
[2022-03-19] MEDS: OMEPRAZOLE 20 MG CAPSULE PO SCH (08:38)
[2022-03-19] MEDS: DIVALPROEX SODIUM 500 MG DR TABLET PO SCH ×2 (08:40→16:37)
[2022-03-19 10:25] VITALS: BP 114/62
[2022-03-19 16:18] VITALS: BP 105/69
[2022-03-19] MEDS: QUEtiapine FUMARATE 200 MG TABLET PO SCH (20:21)
[2022-03-19] MEDS: HALOPERIDOL 5 MG TABLET PO PRN (20:22)
[2022-03-19] MEDS: HydrOXYzine PAMOATE 50 MG CAPSULE PO PRN (20:22)
[2022-03-19] MEDS: ZOLPIDEM TARTRATE 10 MG TABLET PO PRN (21:56)
[2022-03-20] MEDS: QUEtiapine FUMARATE 100 MG TABLET PO SCH (08:36)
[2022-03-20] MEDS: DIVALPROEX SODIUM 500 MG DR TABLET PO SCH ×2 (08:36→16:04)
[2022-03-20] MEDS: BuPROPion HCL 150 MG SR TABLET PO SCH ×2 (08:37→16:03)
[2022-03-20] MEDS: MONTELUKAST SODIUM 10 MG TABLET PO SCH (08:37)
[2022-03-20] MEDS: BENZTROPINE MESYLATE 2 MG TABLET PO SCH (08:37)
[2022-03-20] MEDS: OMEPRAZOLE 20 MG CAPSULE PO SCH (08:37)
[2022-03-20] MEDS: PHENYTOIN SODIUM 100 MG ER CAPSULE PO SCH (08:37)
[2022-03-20] MEDS: FLUTICASONE/VILANTEROL 100-25 MCG/INH INHALER [14] IH SCH (08:44)
[2022-03-20] MEDS: TraMADol HCL 50 MG TABLET PO PRN ×2 (08:47→19:38)
[2022-03-20 08:49] VITALS: BP 130/83
[2022-03-20 09:48] VITALS: BP 113/70
[2022-03-20 19:35] VITALS: BP 110/70
[2022-03-20] MEDS: QUEtiapine FUMARATE 200 MG TABLET PO SCH (21:05)
[2022-03-20] MEDS: HydrOXYzine PAMOATE 50 MG CAPSULE PO PRN (23:28)
[2022-03-20 23:32] VITALS: BP 110/75
[2022-03-21] MEDS: MAG HYDROX/AL HYDROX/SIMETH ES 30 ML SUSPENSION UDCUP PO PRN (00:08)
[2022-03-21 00:35] VITALS: BP 132/77
[2022-03-21] MEDS: BENZTROPINE MESYLATE 2 MG TABLET PO SCH (08:13)
[2022-03-21] MEDS: FLUTICASONE/VILANTEROL 100-25 MCG/INH INHALER [14] IH SCH (08:13)
[2022-03-21] MEDS: OMEPRAZOLE 20 MG CAPSULE PO SCH (08:14)
[2022-03-21] MEDS: PHENYTOIN SODIUM 100 MG ER CAPSULE PO SCH (08:14)
[2022-03-21] MEDS: DIVALPROEX SODIUM 500 MG DR TABLET PO SCH ×2 (08:14→16:22)
[2022-03-21] MEDS: BuPROPion HCL 150 MG SR TABLET PO SCH ×2 (08:15→16:22)
[2022-03-21] MEDS: MONTELUKAST SODIUM 10 MG TABLET PO SCH (08:15)
[2022-03-21] MEDS: QUEtiapine FUMARATE 100 MG TABLET PO SCH (08:15)
[2022-03-21 08:19] VITALS: BP 99/64
[2022-03-21 14:50] VITALS: BP 117/71
[2022-03-21] MEDS: TraMADol HCL 50 MG TABLET PO PRN (14:50)
[2022-03-21 18:17] VITALS: BP 107/67
[2022-03-21] MEDS: QUEtiapine FUMARATE 200 MG TABLET PO SCH (21:29)
[2022-03-22 07:41] LABS: COVID AG,FIA SOURCE NASAL SWAB
[2022-03-22] MEDS: OMEPRAZOLE 20 MG CAPSULE PO SCH (08:14)
[2022-03-22] MEDS: BuPROPion HCL 150 MG SR TABLET PO SCH ×2 (08:14→17:43)
[2022-03-22] MEDS: PHENYTOIN SODIUM 100 MG ER CAPSULE PO SCH (08:15)
[2022-03-22] MEDS: BENZTROPINE MESYLATE 2 MG TABLET PO SCH (08:15)
[2022-03-22] MEDS: QUEtiapine FUMARATE 100 MG TABLET PO SCH (08:15)
[2022-03-22] MEDS: MONTELUKAST SODIUM 10 MG TABLET PO SCH (08:15)
[2022-03-22] MEDS: FLUTICASONE/VILANTEROL 100-25 MCG/INH INHALER [14] IH SCH (08:16)
[2022-03-22] MEDS: DIVALPROEX SODIUM 500 MG DR TABLET PO SCH ×2 (08:19→17:46)
[2022-03-22 08:39] VITALS: BP 93/61
[2022-03-22 11:05] VITALS: BP 139/90
[2022-03-22] MEDS: TraMADol HCL 50 MG TABLET PO PRN ×2 (11:08→23:16)
[2022-03-22 16:19] VITALS: BP 13/77
[2022-03-22] MEDS: QUEtiapine FUMARATE 200 MG TABLET PO SCH (20:44)
[2022-03-22 23:10] VITALS: BP 119/73
[2022-03-23 05:16] VITALS: BP 130/77
[2022-03-23] MEDS: TraMADol HCL 50 MG TABLET PO PRN (05:19)
[2022-03-23] MEDS: OMEPRAZOLE 20 MG CAPSULE PO SCH (09:00)
[2022-03-23] MEDS: QUEtiapine FUMARATE 100 MG TABLET PO SCH (09:00)
[2022-03-23] MEDS: BENZTROPINE MESYLATE 2 MG TABLET PO SCH (09:01)
[2022-03-23] MEDS: FLUTICASONE/VILANTEROL 100-25 MCG/INH INHALER [14] IH SCH (09:01)
[2022-03-23] MEDS: DIVALPROEX SODIUM 500 MG DR TABLET PO SCH ×2 (09:01→16:52)
[2022-03-23] MEDS: PHENYTOIN SODIUM 100 MG ER CAPSULE PO SCH (09:02)
[2022-03-23] MEDS: BuPROPion HCL 150 MG SR TABLET PO SCH ×2 (09:02→16:52)
[2022-03-23] MEDS: MONTELUKAST SODIUM 10 MG TABLET PO SCH (09:02)
[2022-03-23 09:17] VITALS: BP 109/73
[2022-03-23 16:26] VITALS: BP 117/80
[2022-03-23] MEDS: QUEtiapine FUMARATE 200 MG TABLET PO SCH (20:46)
[2022-03-23] MEDS: HALOPERIDOL 5 MG TABLET PO PRN (20:47)
[2022-03-23] MEDS: HydrOXYzine PAMOATE 50 MG CAPSULE PO PRN (20:47)
[2022-03-23] MEDS: ZOLPIDEM TARTRATE 10 MG TABLET PO PRN (21:30)
[2022-03-24] MEDS: DIVALPROEX SODIUM 500 MG DR TABLET PO SCH ×2 (08:36→16:15)
[2022-03-24] MEDS: OMEPRAZOLE 20 MG CAPSULE PO SCH (08:36)
[2022-03-24] MEDS: MONTELUKAST SODIUM 10 MG TABLET PO SCH (08:37)
[2022-03-24] MEDS: QUEtiapine FUMARATE 100 MG TABLET PO SCH (08:37)
[2022-03-24] MEDS: BuPROPion HCL 150 MG SR TABLET PO SCH ×2 (08:37→16:15)
[2022-03-24] MEDS: PHENYTOIN SODIUM 100 MG ER CAPSULE PO SCH (08:37)
[2022-03-24] MEDS: BENZTROPINE MESYLATE 2 MG TABLET PO SCH (08:38)
[2022-03-24] MEDS: FLUTICASONE/VILANTEROL 100-25 MCG/INH INHALER [14] IH SCH (08:38)
[2022-03-24] MEDS: TraMADol HCL 50 MG TABLET PO PRN (10:44)
[2022-03-24 10:48] VITALS: BP 130/86
[2022-03-24 11:47] VITALS: BP 125/88
[2022-03-24 16:16] VITALS: BP 140/80
[2022-03-24] MEDS: QUEtiapine FUMARATE 200 MG TABLET PO SCH (20:34)
[2022-03-24] MEDS: HydrOXYzine PAMOATE 50 MG CAPSULE PO PRN (20:34)
[2022-03-24] MEDS: HALOPERIDOL 5 MG TABLET PO PRN (20:34)
[2022-03-24] MEDS: ZOLPIDEM TARTRATE 10 MG TABLET PO PRN (21:15)
[2022-03-25] MEDS: PHENYTOIN SODIUM 100 MG ER CAPSULE PO SCH (10:05)
[2022-03-25] MEDS: MONTELUKAST SODIUM 10 MG TABLET PO SCH (10:05)
[2022-03-25] MEDS: DIVALPROEX SODIUM 500 MG DR TABLET PO SCH ×2 (10:05→16:25)
[2022-03-25] MEDS: BuPROPion HCL 150 MG SR TABLET PO SCH ×2 (10:05→16:25)
[2022-03-25] MEDS: OMEPRAZOLE 20 MG CAPSULE PO SCH (10:05)
[2022-03-25] MEDS: BENZTROPINE MESYLATE 2 MG TABLET PO SCH (10:05)
[2022-03-25] MEDS: QUEtiapine FUMARATE 100 MG TABLET PO SCH (10:05)
[2022-03-25] MEDS: FLUTICASONE/VILANTEROL 100-25 MCG/INH INHALER [14] IH SCH (10:06)
[2022-03-25 12:31] VITALS: BP 117/70
[2022-03-25] MEDS: TraMADol HCL 50 MG TABLET PO PRN ×2 (12:31→21:37)
[2022-03-25 13:31] VITALS: BP 122/68
[2022-03-25 16:05] VITALS: BP 101/61
[2022-03-25] MEDS: QUEtiapine FUMARATE 200 MG TABLET PO SCH (20:39)
[2022-03-25 21:30] VITALS: BP 110/68
[2022-03-25] MEDS: HydrOXYzine PAMOATE 50 MG CAPSULE PO PRN (21:37)
[2022-03-26] MEDS: MONTELUKAST SODIUM 10 MG TABLET PO SCH (08:28)
[2022-03-26] MEDS: BuPROPion HCL 150 MG SR TABLET PO SCH ×2 (08:28→16:20)
[2022-03-26] MEDS: QUEtiapine FUMARATE 100 MG TABLET PO SCH (08:28)
[2022-03-26] MEDS: DIVALPROEX SODIUM 500 MG DR TABLET PO SCH ×2 (08:28→16:20)
[2022-03-26] MEDS: OMEPRAZOLE 20 MG CAPSULE PO SCH (08:28)
[2022-03-26] MEDS: PHENYTOIN SODIUM 100 MG ER CAPSULE PO SCH (08:28)
[2022-03-26] MEDS: BENZTROPINE MESYLATE 2 MG TABLET PO SCH (08:28)
[2022-03-26] MEDS: FLUTICASONE/VILANTEROL 100-25 MCG/INH INHALER [14] IH SCH (08:32)
[2022-03-26 09:01] VITALS: BP 102/65
[2022-03-26 16:17] VITALS: BP 115/73
[2022-03-26 18:06] VITALS: BP 118/72
[2022-03-26] MEDS: TraMADol HCL 50 MG TABLET PO PRN (18:06)
[2022-03-26 19:06] VITALS: BP 115/74
[2022-03-26] MEDS: QUEtiapine FUMARATE 200 MG TABLET PO SCH (20:17)
[2022-03-26] MEDS: HALOPERIDOL 5 MG TABLET PO PRN (20:17)
[2022-03-26] MEDS: HydrOXYzine PAMOATE 50 MG CAPSULE PO PRN (20:17)
[2022-03-26] MEDS: ZOLPIDEM TARTRATE 10 MG TABLET PO PRN (20:59)
[2022-03-27 08:40] VITALS: BP 114/81
[2022-03-27] MEDS: MONTELUKAST SODIUM 10 MG TABLET PO SCH (08:42)
[2022-03-27] MEDS: QUEtiapine FUMARATE 100 MG TABLET PO SCH (08:42)
[2022-03-27] MEDS: BuPROPion HCL 150 MG SR TABLET PO SCH ×2 (08:42→16:17)
[2022-03-27] MEDS: TraMADol HCL 50 MG TABLET PO PRN ×2 (08:42→16:17)
[2022-03-27] MEDS: HydrOXYzine PAMOATE 50 MG CAPSULE PO PRN ×2 (08:42→16:17)
[2022-03-27] MEDS: PHENYTOIN SODIUM 100 MG ER CAPSULE PO SCH (08:42)
[2022-03-27] MEDS: FLUTICASONE/VILANTEROL 100-25 MCG/INH INHALER [14] IH SCH (08:43)
[2022-03-27] MEDS: OMEPRAZOLE 20 MG CAPSULE PO SCH (08:43)
[2022-03-27] MEDS: BENZTROPINE MESYLATE 2 MG TABLET PO SCH (08:43)
[2022-03-27] MEDS: DIVALPROEX SODIUM 500 MG DR TABLET PO SCH ×2 (09:00→17:00)
[2022-03-27] MEDS: ALBUTEROL SULFATE HFA 90 MCG/PUFF 8 GM INHALER IH PRN (10:04)
[2022-03-27 16:14] VITALS: BP 103/65
[2022-03-27] MEDS: QUEtiapine FUMARATE 200 MG TABLET PO SCH (20:23)
[2022-03-28] MEDS: DIVALPROEX SODIUM 500 MG DR TABLET PO SCH ×2 (09:00→17:17)
[2022-03-28 09:06] VITALS: BP 107/74
[2022-03-28 09:50] VITALS: BP 107/74
[2022-03-28] MEDS: MAG HYDROX/AL HYDROX/SIMETH ES 30 ML SUSPENSION UDCUP PO PRN (09:52)
[2022-03-28] MEDS: PHENYTOIN SODIUM 100 MG ER CAPSULE PO SCH (09:52)
[2022-03-28] MEDS: HydrOXYzine PAMOATE 50 MG CAPSULE PO PRN ×2 (09:52→17:17)
[2022-03-28] MEDS: QUEtiapine FUMARATE 100 MG TABLET PO SCH (09:52)
[2022-03-28] MEDS: BENZTROPINE MESYLATE 2 MG TABLET PO SCH (09:52)
[2022-03-28] MEDS: OMEPRAZOLE 20 MG CAPSULE PO SCH (09:52)
[2022-03-28] MEDS: TraMADol HCL 50 MG TABLET PO PRN ×2 (09:52→17:17)
[2022-03-28] MEDS: MONTELUKAST SODIUM 10 MG TABLET PO SCH (09:53)
[2022-03-28] MEDS: BuPROPion HCL 150 MG SR TABLET PO SCH ×2 (09:53→17:17)
[2022-03-28] MEDS: FLUTICASONE/VILANTEROL 100-25 MCG/INH INHALER [14] IH SCH (10:01)
[2022-03-28] MEDS: ALBUTEROL SULFATE HFA 90 MCG/PUFF 8 GM INHALER IH PRN (10:02)
[2022-03-28 16:13] VITALS: BP 131/84
[2022-03-28 17:14] VITALS: BP 131/84
[2022-03-28] MEDS: QUEtiapine FUMARATE 200 MG TABLET PO SCH (20:54)
[2022-03-29 01:03] VITALS: BP 119/81
[2022-03-29] MEDS: TraMADol HCL 50 MG TABLET PO PRN ×3 (01:05→18:04)
[2022-03-29 07:29] LABS: COVID AG,FIA SOURCE NASAL SWAB
[2022-03-29] MEDS: OMEPRAZOLE 20 MG CAPSULE PO SCH (09:09)
[2022-03-29] MEDS: BuPROPion HCL 150 MG SR TABLET PO SCH ×2 (09:09→18:04)
[2022-03-29] MEDS: QUEtiapine FUMARATE 100 MG TABLET PO SCH (09:10)
[2022-03-29] MEDS: DIVALPROEX SODIUM 500 MG DR TABLET PO SCH ×2 (09:10→18:03)
[2022-03-29] MEDS: FLUTICASONE/VILANTEROL 100-25 MCG/INH INHALER [14] IH SCH (09:12)
[2022-03-29] MEDS: ALBUTEROL SULFATE HFA 90 MCG/PUFF 8 GM INHALER IH PRN (09:12)
[2022-03-29] MEDS: MONTELUKAST SODIUM 10 MG TABLET PO SCH (09:13)
[2022-03-29] MEDS: BENZTROPINE MESYLATE 2 MG TABLET PO SCH (09:13)
[2022-03-29] MEDS: PHENYTOIN SODIUM 100 MG ER CAPSULE PO SCH (09:14)
[2022-03-29 12:23] VITALS: BP 113/89
[2022-03-29 16:13] VITALS: BP 120/80
[2022-03-29] MEDS: HydrOXYzine PAMOATE 50 MG CAPSULE PO PRN (18:03)
[2022-03-29] MEDS: QUEtiapine FUMARATE 200 MG TABLET PO SCH (21:49)
[2022-03-30 08:15] VITALS: BP 115/65
[2022-03-30] MEDS: FLUTICASONE/VILANTEROL 100-25 MCG/INH INHALER [14] IH SCH (08:30)
[2022-03-30] MEDS: DIVALPROEX SODIUM 500 MG DR TABLET PO SCH ×2 (08:31→16:16)
[2022-03-30] MEDS: OMEPRAZOLE 20 MG CAPSULE PO SCH (08:31)
[2022-03-30] MEDS: MONTELUKAST SODIUM 10 MG TABLET PO SCH (08:31)
[2022-03-30] MEDS: PHENYTOIN SODIUM 100 MG ER CAPSULE PO SCH (08:31)
[2022-03-30] MEDS: BENZTROPINE MESYLATE 2 MG TABLET PO SCH (08:31)
[2022-03-30] MEDS: BuPROPion HCL 150 MG SR TABLET PO SCH ×2 (08:31→16:16)
[2022-03-30] MEDS: QUEtiapine FUMARATE 100 MG TABLET PO SCH (08:32)
[2022-03-30 12:12] VITALS: BP 124/75
[2022-03-30] MEDS: TraMADol HCL 50 MG TABLET PO PRN ×2 (12:12→20:46)
[2022-03-30 13:12] VITALS: BP 120/72
[2022-03-30 16:40] VITALS: BP 108/75
[2022-03-30 20:40] VITALS: BP 119/71
[2022-03-30] MEDS: QUEtiapine FUMARATE 200 MG TABLET PO SCH (21:21)
[2022-03-30 21:46] VITALS: BP 120/70
[2022-03-31 08:00] VITALS: BP 119/80
[2022-03-31] MEDS: PHENYTOIN SODIUM 100 MG ER CAPSULE PO SCH (09:08)
[2022-03-31] MEDS: BENZTROPINE MESYLATE 2 MG TABLET PO SCH (09:08)
[2022-03-31] MEDS: DIVALPROEX SODIUM 500 MG DR TABLET PO SCH ×2 (09:08→16:31)
[2022-03-31] MEDS: BuPROPion HCL 150 MG SR TABLET PO SCH ×2 (09:08→16:31)
[2022-03-31] MEDS: MONTELUKAST SODIUM 10 MG TABLET PO SCH (09:09)
[2022-03-31] MEDS: QUEtiapine FUMARATE 100 MG TABLET PO SCH (09:09)
[2022-03-31] MEDS: FLUTICASONE/VILANTEROL 100-25 MCG/INH INHALER [14] IH SCH (09:17)
[2022-03-31] MEDS: OMEPRAZOLE 20 MG CAPSULE PO SCH (09:18)
[2022-03-31 10:10] VITALS: BP 123/71
[2022-03-31] MEDS: TraMADol HCL 50 MG TABLET PO PRN ×2 (10:10→16:33)
[2022-03-31 11:10] VITALS: BP 118/74
[2022-03-31 16:00] VITALS: BP 120/67
[2022-03-31 16:33] VITALS: BP 122/74
[2022-03-31 17:33] VITALS: BP 123/72
[2022-03-31] MEDS: QUEtiapine FUMARATE 200 MG TABLET PO SCH (20:29)
[2022-04-01] MEDS: MONTELUKAST SODIUM 10 MG TABLET PO SCH (08:24)
[2022-04-01] MEDS: OMEPRAZOLE 20 MG CAPSULE PO SCH (08:24)
[2022-04-01] MEDS: DIVALPROEX SODIUM 500 MG DR TABLET PO SCH ×2 (08:24→16:05)
[2022-04-01] MEDS: BuPROPion HCL 150 MG SR TABLET PO SCH ×2 (08:24→16:05)
[2022-04-01] MEDS: BENZTROPINE MESYLATE 2 MG TABLET PO SCH (08:24)
[2022-04-01] MEDS: QUEtiapine FUMARATE 100 MG TABLET PO SCH (08:24)
[2022-04-01] MEDS: PHENYTOIN SODIUM 100 MG ER CAPSULE PO SCH (08:24)
[2022-04-01] MEDS: FLUTICASONE/VILANTEROL 100-25 MCG/INH INHALER [14] IH SCH (08:25)
[2022-04-01 09:04] VITALS: BP 115/79
[2022-04-01] MEDS: TraMADol HCL 50 MG TABLET PO PRN ×2 (09:04→18:12)
[2022-04-01 10:04] VITALS: BP 108/72
[2022-04-01 16:04] VITALS: BP 129/86
[2022-04-01 18:12] VITALS: BP 126/84
[2022-04-01] MEDS: QUEtiapine FUMARATE 200 MG TABLET PO SCH (20:59)
[2022-04-02 08:33] VITALS: BP 100/50
[2022-04-02] MEDS: FLUTICASONE/VILANTEROL 100-25 MCG/INH INHALER [14] IH SCH (08:35)
[2022-04-02] MEDS: DIVALPROEX SODIUM 500 MG DR TABLET PO SCH ×2 (08:35→16:14)
[2022-04-02] MEDS: BENZTROPINE MESYLATE 2 MG TABLET PO SCH (08:35)
[2022-04-02] MEDS: OMEPRAZOLE 20 MG CAPSULE PO SCH (08:36)
[2022-04-02] MEDS: PHENYTOIN SODIUM 100 MG ER CAPSULE PO SCH (08:36)
[2022-04-02] MEDS: QUEtiapine FUMARATE 100 MG TABLET PO SCH (08:36)
[2022-04-02] MEDS: MONTELUKAST SODIUM 10 MG TABLET PO SCH (08:37)
[2022-04-02] MEDS: BuPROPion HCL 150 MG SR TABLET PO SCH ×2 (08:37→16:14)
[2022-04-02 08:39] VITALS: BP 100/50
[2022-04-02] MEDS: TraMADol HCL 50 MG TABLET PO PRN ×2 (08:40→21:49)
[2022-04-02 09:39] VITALS: BP 112/67
[2022-04-02 16:05] VITALS: BP 121/60
[2022-04-02] MEDS: QUEtiapine FUMARATE 200 MG TABLET PO SCH (20:12)
[2022-04-02 21:49] VITALS: BP 118/64
[2022-04-03 08:30] VITALS: BP 130/77
[2022-04-03] MEDS: HydrOXYzine PAMOATE 50 MG CAPSULE PO PRN ×2 (08:34→17:09)
[2022-04-03] MEDS: TraMADol HCL 50 MG TABLET PO PRN ×2 (08:35→17:09)
[2022-04-03] MEDS: BENZTROPINE MESYLATE 2 MG TABLET PO SCH (08:35)
[2022-04-03] MEDS: FLUTICASONE/VILANTEROL 100-25 MCG/INH INHALER [14] IH SCH (08:35)
[2022-04-03] MEDS: QUEtiapine FUMARATE 100 MG TABLET PO SCH (08:35)
[2022-04-03] MEDS: OMEPRAZOLE 20 MG CAPSULE PO SCH (08:35)
[2022-04-03] MEDS: PHENYTOIN SODIUM 100 MG ER CAPSULE PO SCH (08:35)
[2022-04-03] MEDS: MONTELUKAST SODIUM 10 MG TABLET PO SCH (08:36)
[2022-04-03] MEDS: BuPROPion HCL 150 MG SR TABLET PO SCH ×2 (08:36→17:09)
[2022-04-03] MEDS: DIVALPROEX SODIUM 500 MG DR TABLET PO SCH ×2 (08:40→17:09)
[2022-04-03 16:10] VITALS: BP 95/60
[2022-04-03 17:05] VITALS: BP 120/70
[2022-04-03] MEDS: QUEtiapine FUMARATE 200 MG TABLET PO SCH (20:08)
[2022-04-04 08:46] VITALS: BP 117/73
[2022-04-04] MEDS: OMEPRAZOLE 20 MG CAPSULE PO SCH (08:53)
[2022-04-04] MEDS: PHENYTOIN SODIUM 100 MG ER CAPSULE PO SCH (08:53)
[2022-04-04] MEDS: BENZTROPINE MESYLATE 2 MG TABLET PO SCH (08:53)
[2022-04-04] MEDS: MONTELUKAST SODIUM 10 MG TABLET PO SCH (08:53)
[2022-04-04] MEDS: BuPROPion HCL 150 MG SR TABLET PO SCH ×2 (08:53→16:28)
[2022-04-04] MEDS: QUEtiapine FUMARATE 100 MG TABLET PO SCH (08:53)
[2022-04-04] MEDS: FLUTICASONE/VILANTEROL 100-25 MCG/INH INHALER [14] IH SCH (08:53)
[2022-04-04] MEDS: DIVALPROEX SODIUM 500 MG DR TABLET PO SCH ×2 (08:53→16:28)
[2022-04-04] MEDS: TraMADol HCL 50 MG TABLET PO PRN ×2 (08:55→17:43)
[2022-04-04] MEDS: ALBUTEROL SULFATE HFA 90 MCG/PUFF 8 GM INHALER IH PRN (08:56)
[2022-04-04 09:55] VITALS: BP 112/72
[2022-04-04 16:08] VITALS: BP 94/59
[2022-04-04 17:43] VITALS: BP 116/68
[2022-04-04] MEDS: QUEtiapine FUMARATE 200 MG TABLET PO SCH (21:02)
[2022-04-05 07:02] LABS: COVID AG,FIA SOURCE NASAL SWAB
[2022-04-05] MEDS: BuPROPion HCL 150 MG SR TABLET PO SCH ×2 (08:07→17:08)
[2022-04-05] MEDS: PHENYTOIN SODIUM 100 MG ER CAPSULE PO SCH (08:08)
[2022-04-05] MEDS: FLUTICASONE/VILANTEROL 100-25 MCG/INH INHALER [14] IH SCH (08:08)
[2022-04-05] MEDS: BENZTROPINE MESYLATE 2 MG TABLET PO SCH (08:08)
[2022-04-05] MEDS: MONTELUKAST SODIUM 10 MG TABLET PO SCH (08:08)
[2022-04-05] MEDS: DIVALPROEX SODIUM 500 MG DR TABLET PO SCH ×2 (08:09→17:08)
[2022-04-05] MEDS: OMEPRAZOLE 20 MG CAPSULE PO SCH (08:10)
[2022-04-05] MEDS: QUEtiapine FUMARATE 100 MG TABLET PO SCH (08:10)
[2022-04-05 08:23] VITALS: BP 109/71
[2022-04-05 16:05] VITALS: BP 97/62
[2022-04-05 19:40] VITALS: BP 116/70
[2022-04-05] MEDS: TraMADol HCL 50 MG TABLET PO PRN (19:42)
[2022-04-05] MEDS: QUEtiapine FUMARATE 200 MG TABLET PO SCH (20:53)
[2022-04-06 03:55] VITALS: BP 131/86
[2022-04-06] MEDS: TraMADol HCL 50 MG TABLET PO PRN ×2 (03:57→17:55)
[2022-04-06] MEDS: BENZTROPINE MESYLATE 2 MG TABLET PO SCH (08:38)
[2022-04-06] MEDS: DIVALPROEX SODIUM 500 MG DR TABLET PO SCH ×2 (08:38→17:02)
[2022-04-06] MEDS: PHENYTOIN SODIUM 100 MG ER CAPSULE PO SCH (08:38)
[2022-04-06] MEDS: QUEtiapine FUMARATE 100 MG TABLET PO SCH (08:38)
[2022-04-06] MEDS: FLUTICASONE/VILANTEROL 100-25 MCG/INH INHALER [14] IH SCH (08:38)
[2022-04-06] MEDS: OMEPRAZOLE 20 MG CAPSULE PO SCH (08:38)
[2022-04-06] MEDS: MONTELUKAST SODIUM 10 MG TABLET PO SCH (08:39)
[2022-04-06] MEDS: BuPROPion HCL 150 MG SR TABLET PO SCH ×2 (08:39→17:02)
[2022-04-06 09:23] VITALS: BP 116/75
[2022-04-06 09:24] VITALS: BP 116/75
[2022-04-06 17:55] VITALS: BP 122/67
[2022-04-06] MEDS: QUEtiapine FUMARATE 200 MG TABLET PO SCH (20:21)
[2022-04-07 08:00] VITALS: BP 117/71
[2022-04-07] MEDS: BENZTROPINE MESYLATE 2 MG TABLET PO SCH (09:05)
[2022-04-07] MEDS: PHENYTOIN SODIUM 100 MG ER CAPSULE PO SCH (09:05)
[2022-04-07] MEDS: FLUTICASONE/VILANTEROL 100-25 MCG/INH INHALER [14] IH SCH (09:05)
[2022-04-07] MEDS: BuPROPion HCL 150 MG SR TABLET PO SCH ×2 (09:05→16:29)
[2022-04-07] MEDS: MONTELUKAST SODIUM 10 MG TABLET PO SCH (09:06)
[2022-04-07] MEDS: DIVALPROEX SODIUM 500 MG DR TABLET PO SCH ×2 (09:07→16:30)
[2022-04-07] MEDS: OMEPRAZOLE 20 MG CAPSULE PO SCH (09:07)
[2022-04-07] MEDS: QUEtiapine FUMARATE 100 MG TABLET PO SCH (09:07)
[2022-04-07 09:24] VITALS: BP 117/69
[2022-04-07 16:11] VITALS: BP 103/58
[2022-04-07] MEDS: QUEtiapine FUMARATE 200 MG TABLET PO SCH (20:21)
[2022-04-08] MEDS: FLUTICASONE/VILANTEROL 100-25 MCG/INH INHALER [14] IH SCH (08:57)
[2022-04-08] MEDS: MONTELUKAST SODIUM 10 MG TABLET PO SCH (08:58)
[2022-04-08] MEDS: OMEPRAZOLE 20 MG CAPSULE PO SCH (08:58)
[2022-04-08] MEDS: BuPROPion HCL 150 MG SR TABLET PO SCH ×2 (08:58→16:02)
[2022-04-08] MEDS: PHENYTOIN SODIUM 100 MG ER CAPSULE PO SCH (08:58)
[2022-04-08] MEDS: BENZTROPINE MESYLATE 2 MG TABLET PO SCH (08:58)
[2022-04-08] MEDS: QUEtiapine FUMARATE 100 MG TABLET PO SCH (08:59)
[2022-04-08] MEDS: DIVALPROEX SODIUM 500 MG DR TABLET PO SCH ×2 (08:59→16:02)
[2022-04-08 09:15] VITALS: BP 115/75
[2022-04-08 16:31] VITALS: BP 113/71
[2022-04-08] MEDS: TraMADol HCL 50 MG TABLET PO PRN (18:36)
[2022-04-08] MEDS: QUEtiapine FUMARATE 200 MG TABLET PO SCH (21:00)
[2022-04-09] MEDS: OMEPRAZOLE 20 MG CAPSULE PO SCH (08:16)
[2022-04-09] MEDS: BENZTROPINE MESYLATE 2 MG TABLET PO SCH (08:16)
[2022-04-09] MEDS: DIVALPROEX SODIUM 500 MG DR TABLET PO SCH ×2 (08:16→16:31)
[2022-04-09] MEDS: BuPROPion HCL 150 MG SR TABLET PO SCH ×2 (08:16→16:31)
[2022-04-09] MEDS: MONTELUKAST SODIUM 10 MG TABLET PO SCH (08:16)
[2022-04-09] MEDS: QUEtiapine FUMARATE 100 MG TABLET PO SCH (08:16)
[2022-04-09] MEDS: FLUTICASONE/VILANTEROL 100-25 MCG/INH INHALER [14] IH SCH (08:16)
[2022-04-09] MEDS: PHENYTOIN SODIUM 100 MG ER CAPSULE PO SCH (08:17)
[2022-04-09 08:33] VITALS: BP 116/78
[2022-04-09 08:34] VITALS: BP 116/78
[2022-04-09 09:00] VITALS: BP 126/69
[2022-04-09] MEDS: TraMADol HCL 50 MG TABLET PO PRN (09:04)
[2022-04-09 16:14] VITALS: BP 105/68
[2022-04-09] MEDS: QUEtiapine FUMARATE 200 MG TABLET PO SCH (21:17)
[2022-04-10] MEDS: OMEPRAZOLE 20 MG CAPSULE PO SCH (08:11)
[2022-04-10] MEDS: QUEtiapine FUMARATE 100 MG TABLET PO SCH (08:11)
[2022-04-10] MEDS: BENZTROPINE MESYLATE 2 MG TABLET PO SCH (08:11)
[2022-04-10] MEDS: MONTELUKAST SODIUM 10 MG TABLET PO SCH (08:11)
[2022-04-10] MEDS: BuPROPion HCL 150 MG SR TABLET PO SCH ×2 (08:11→16:51)
[2022-04-10] MEDS: DIVALPROEX SODIUM 500 MG DR TABLET PO SCH ×2 (08:11→16:51)
[2022-04-10] MEDS: PHENYTOIN SODIUM 100 MG ER CAPSULE PO SCH (08:11)
[2022-04-10] MEDS: FLUTICASONE/VILANTEROL 100-25 MCG/INH INHALER [14] IH SCH (08:12)
[2022-04-10 09:19] VITALS: BP 148/92
[2022-04-10] MEDS: TraMADol HCL 50 MG TABLET PO PRN ×2 (09:21→21:08)
[2022-04-10 16:04] VITALS: BP 106/79
[2022-04-10 21:06] VITALS: BP 133/75
[2022-04-10] MEDS: QUEtiapine FUMARATE 200 MG TABLET PO SCH (21:07)
[2022-04-11] VITALS (7 sets, daily range): BP systolic 113–128; BP diastolic 72–91
[2022-04-11] MEDS: QUEtiapine FUMARATE 100 MG TABLET PO SCH (08:20)
[2022-04-11] MEDS: OMEPRAZOLE 20 MG CAPSULE PO SCH (08:20)
[2022-04-11] MEDS: DIVALPROEX SODIUM 500 MG DR TABLET PO SCH ×2 (08:20→16:46)
[2022-04-11] MEDS: MONTELUKAST SODIUM 10 MG TABLET PO SCH (08:21)
[2022-04-11] MEDS: PHENYTOIN SODIUM 100 MG ER CAPSULE PO SCH (08:21)
[2022-04-11] MEDS: BENZTROPINE MESYLATE 2 MG TABLET PO SCH (08:21)
[2022-04-11] MEDS: FLUTICASONE/VILANTEROL 100-25 MCG/INH INHALER [14] IH SCH (08:21)
[2022-04-11] MEDS: BuPROPion HCL 150 MG SR TABLET PO SCH ×2 (08:22→16:46)
[2022-04-11] MEDS: TraMADol HCL 50 MG TABLET PO PRN ×2 (08:59→17:13)
[2022-04-11] MEDS: QUEtiapine FUMARATE 200 MG TABLET PO SCH (20:42)
[2022-04-12 07:32] LABS: COVID AG,FIA SOURCE NASAL SWAB
[2022-04-12 08:20] VITALS: BP 129/77
[2022-04-12] MEDS: PHENYTOIN SODIUM 100 MG ER CAPSULE PO SCH (08:22)
[2022-04-12] MEDS: BuPROPion HCL 150 MG SR TABLET PO SCH ×2 (08:22→16:32)
[2022-04-12] MEDS: BENZTROPINE MESYLATE 2 MG TABLET PO SCH (08:22)
[2022-04-12] MEDS: QUEtiapine FUMARATE 100 MG TABLET PO SCH (08:22)
[2022-04-12] MEDS: TraMADol HCL 50 MG TABLET PO PRN ×2 (08:22→16:32)
[2022-04-12] MEDS: MONTELUKAST SODIUM 10 MG TABLET PO SCH (08:22)
[2022-04-12] MEDS: OMEPRAZOLE 20 MG CAPSULE PO SCH (08:22)
[2022-04-12 08:48] VITALS: BP 129/90
[2022-04-12] MEDS: DIVALPROEX SODIUM 500 MG DR TABLET PO SCH ×2 (09:00→17:00)
[2022-04-12] MEDS: FLUTICASONE/VILANTEROL 100-25 MCG/INH INHALER [14] IH SCH (11:02)
[2022-04-12 16:28] VITALS: BP 118/78
[2022-04-12] MEDS: QUEtiapine FUMARATE 200 MG TABLET PO SCH (20:44)
[2022-04-13] MEDS: OMEPRAZOLE 20 MG CAPSULE PO SCH (08:00)
[2022-04-13] MEDS: PHENYTOIN SODIUM 100 MG ER CAPSULE PO SCH (08:00)
[2022-04-13] MEDS: QUEtiapine FUMARATE 100 MG TABLET PO SCH (08:00)
[2022-04-13] MEDS: MONTELUKAST SODIUM 10 MG TABLET PO SCH (08:00)
[2022-04-13] MEDS: DIVALPROEX SODIUM 500 MG DR TABLET PO SCH ×2 (08:00→16:03)
[2022-04-13] MEDS: BENZTROPINE MESYLATE 2 MG TABLET PO SCH (08:00)
[2022-04-13] MEDS: BuPROPion HCL 150 MG SR TABLET PO SCH ×2 (08:00→16:03)
[2022-04-13] MEDS: FLUTICASONE/VILANTEROL 100-25 MCG/INH INHALER [14] IH SCH (08:01)
[2022-04-13] MEDS: TraMADol HCL 50 MG TABLET PO PRN ×2 (10:13→21:00)
[2022-04-13 10:15] VITALS: BP 136/84
[2022-04-13 16:10] VITALS: BP 120/81
[2022-04-13] MEDS: QUEtiapine FUMARATE 200 MG TABLET PO SCH (20:13)
[2022-04-13 20:57] VITALS: BP 125/89
[2022-04-13] MEDS: MAG HYDROX/AL HYDROX/SIMETH ES 30 ML SUSPENSION UDCUP PO PRN (23:37)
[2022-04-14 08:05] VITALS: BP 127/83
[2022-04-14] MEDS: FLUTICASONE/VILANTEROL 100-25 MCG/INH INHALER [14] IH SCH (08:39)
[2022-04-14] MEDS: PHENYTOIN SODIUM 100 MG ER CAPSULE PO SCH (08:39)
[2022-04-14] MEDS: QUEtiapine FUMARATE 100 MG TABLET PO SCH (08:39)
[2022-04-14] MEDS: BuPROPion HCL 150 MG SR TABLET PO SCH ×2 (08:40→15:55)
[2022-04-14] MEDS: BENZTROPINE MESYLATE 2 MG TABLET PO SCH (08:40)
[2022-04-14] MEDS: DIVALPROEX SODIUM 500 MG DR TABLET PO SCH ×2 (08:40→15:55)
[2022-04-14] MEDS: OMEPRAZOLE 20 MG CAPSULE PO SCH (08:40)
[2022-04-14] MEDS: MONTELUKAST SODIUM 10 MG TABLET PO SCH (08:40)
[2022-04-14] MEDS: TraMADol HCL 50 MG TABLET PO PRN (12:35)
[2022-04-14 12:37] VITALS: BP 122/78
[2022-04-14 16:13] VITALS: BP 121/78
[2022-04-14] MEDS: QUEtiapine FUMARATE 200 MG TABLET PO SCH (20:32)
[2022-04-15] MEDS: OMEPRAZOLE 20 MG CAPSULE PO SCH (09:10)
[2022-04-15] MEDS: MONTELUKAST SODIUM 10 MG TABLET PO SCH (09:10)
[2022-04-15] MEDS: BuPROPion HCL 150 MG SR TABLET PO SCH ×2 (09:10→16:57)
[2022-04-15] MEDS: QUEtiapine FUMARATE 100 MG TABLET PO SCH (09:10)
[2022-04-15] MEDS: PHENYTOIN SODIUM 100 MG ER CAPSULE PO SCH (09:10)
[2022-04-15] MEDS: BENZTROPINE MESYLATE 2 MG TABLET PO SCH (09:10)
[2022-04-15] MEDS: FLUTICASONE/VILANTEROL 100-25 MCG/INH INHALER [14] IH SCH (09:10)
[2022-04-15] MEDS: DIVALPROEX SODIUM 500 MG DR TABLET PO SCH ×2 (09:10→16:57)
[2022-04-15 09:12] VITALS: BP 115/87
[2022-04-15] MEDS: TraMADol HCL 50 MG TABLET PO PRN ×2 (09:12→19:51)
[2022-04-15] MEDS: HydrOXYzine PAMOATE 50 MG CAPSULE PO PRN (09:12)
[2022-04-15 10:12] VITALS: BP 118/84
[2022-04-15 16:30] VITALS: BP 126/86
[2022-04-15 19:51] VITALS: BP 129/75
[2022-04-15] MEDS: QUEtiapine FUMARATE 200 MG TABLET PO SCH ×2 (20:44→21:37)
[2022-04-16] MEDS: FLUTICASONE/VILANTEROL 100-25 MCG/INH INHALER [14] IH SCH (08:04)
[2022-04-16] MEDS: BuPROPion HCL 150 MG SR TABLET PO SCH ×2 (08:04→16:35)
[2022-04-16] MEDS: BENZTROPINE MESYLATE 2 MG TABLET PO SCH (08:04)
[2022-04-16] MEDS: PHENYTOIN SODIUM 100 MG ER CAPSULE PO SCH (08:04)
[2022-04-16] MEDS: DIVALPROEX SODIUM 500 MG DR TABLET PO SCH ×4 (08:05→17:00)
[2022-04-16] MEDS: OMEPRAZOLE 20 MG CAPSULE PO SCH (08:05)
[2022-04-16] MEDS: QUEtiapine FUMARATE 100 MG TABLET PO SCH (08:05)
[2022-04-16] MEDS: MONTELUKAST SODIUM 10 MG TABLET PO SCH (08:05)
[2022-04-16 09:05] VITALS: BP 98/74
[2022-04-16] MEDS: TraMADol HCL 50 MG TABLET PO PRN (09:05)
[2022-04-16 09:40] VITALS: BP 100/71
[2022-04-16 16:15] VITALS: BP 104/67
[2022-04-16] MEDS: QUEtiapine FUMARATE 200 MG TABLET PO SCH (20:49)
[2022-04-16] MEDS: HydrOXYzine PAMOATE 50 MG CAPSULE PO PRN (20:50)
[2022-04-16] MEDS: ZOLPIDEM TARTRATE 10 MG TABLET PO PRN (22:05)
[2022-04-17 06:05] VITALS: BP 124/80
[2022-04-17 08:25] VITALS: BP 115/76
[2022-04-17] MEDS: HydrOXYzine PAMOATE 50 MG CAPSULE PO PRN (08:29)
[2022-04-17] MEDS: OMEPRAZOLE 20 MG CAPSULE PO SCH (08:29)
[2022-04-17] MEDS: QUEtiapine FUMARATE 100 MG TABLET PO SCH (08:29)
[2022-04-17] MEDS: PHENYTOIN SODIUM 100 MG ER CAPSULE PO SCH (08:30)
[2022-04-17] MEDS: MONTELUKAST SODIUM 10 MG TABLET PO SCH (08:30)
[2022-04-17] MEDS: BENZTROPINE MESYLATE 2 MG TABLET PO SCH (08:30)
[2022-04-17] MEDS: BuPROPion HCL 150 MG SR TABLET PO SCH ×2 (08:30→16:24)
[2022-04-17] MEDS: TraMADol HCL 50 MG TABLET PO PRN ×2 (08:30→16:24)
[2022-04-17] MEDS: FLUTICASONE/VILANTEROL 100-25 MCG/INH INHALER [14] IH SCH (08:37)
[2022-04-17] MEDS: DIVALPROEX SODIUM 500 MG DR TABLET PO SCH ×2 (09:00→17:00)
[2022-04-17 16:00] VITALS: BP 125/85
[2022-04-17 16:20] VITALS: BP 125/85
[2022-04-17] MEDS: QUEtiapine FUMARATE 200 MG TABLET PO SCH (20:27)
[2022-04-18 08:18] VITALS: BP 108/74
[2022-04-18] MEDS: TraMADol HCL 50 MG TABLET PO PRN ×2 (08:20→16:52)
[2022-04-18] MEDS: QUEtiapine FUMARATE 100 MG TABLET PO SCH (08:21)
[2022-04-18] MEDS: BuPROPion HCL 150 MG SR TABLET PO SCH ×2 (08:21→16:52)
[2022-04-18] MEDS: FLUTICASONE/VILANTEROL 100-25 MCG/INH INHALER [14] IH SCH (08:21)
[2022-04-18] MEDS: OMEPRAZOLE 20 MG CAPSULE PO SCH (08:21)
[2022-04-18] MEDS: PHENYTOIN SODIUM 100 MG ER CAPSULE PO SCH (08:21)
[2022-04-18] MEDS: MONTELUKAST SODIUM 10 MG TABLET PO SCH (08:22)
[2022-04-18] MEDS: BENZTROPINE MESYLATE 2 MG TABLET PO SCH (08:24)
[2022-04-18] MEDS: DIVALPROEX SODIUM 500 MG DR TABLET PO SCH ×2 (09:00→16:52)
[2022-04-18 16:17] VITALS: BP 118/75
[2022-04-18 16:49] VITALS: BP 118/75
[2022-04-18] MEDS: QUEtiapine FUMARATE 200 MG TABLET PO SCH (20:32)
[2022-04-19 08:00] VITALS: BP 128/78
[2022-04-19 08:01] LABS: COVID AG,FIA SOURCE NASAL SWAB
[2022-04-19 08:30] VITALS: BP 128/78
[2022-04-19] MEDS: FLUTICASONE/VILANTEROL 100-25 MCG/INH INHALER [14] IH SCH (08:33)
[2022-04-19] MEDS: MONTELUKAST SODIUM 10 MG TABLET PO SCH (08:33)
[2022-04-19] MEDS: PHENYTOIN SODIUM 100 MG ER CAPSULE PO SCH (08:33)
[2022-04-19] MEDS: BuPROPion HCL 150 MG SR TABLET PO SCH (08:33)
[2022-04-19] MEDS: QUEtiapine FUMARATE 100 MG TABLET PO SCH (08:33)
[2022-04-19] MEDS: OMEPRAZOLE 20 MG CAPSULE PO SCH (08:33)
[2022-04-19] MEDS: DIVALPROEX SODIUM 500 MG DR TABLET PO SCH (08:34)
[2022-04-19] MEDS: BENZTROPINE MESYLATE 2 MG TABLET PO SCH (08:34)
[2022-04-19] MEDS: TraMADol HCL 50 MG TABLET PO PRN (08:34)
[2022-04-22] MEDS ORDERED: HALO5TAB23 PO (12:03)
[2022-04-22] MEDS ORDERED: ZOLP10TA8 PO (12:03)
[2022-04-22] MEDS ORDERED: CLON0.1T2 PO (12:03)
[2022-04-22] MEDS ORDERED: MAALOX PO (12:03)
[2022-04-22] MEDS ORDERED: ONDA4TAB96 PO (12:03)
[2022-04-22] MEDS ORDERED: MAGN-169 PO (12:03)
[2022-04-22] MEDS ORDERED: ALBUTEROL MISC (12:03)
[2022-04-22] MEDS ORDERED: DOCU100C33 PO (12:03)
[2022-04-22] MEDS ORDERED: TRAM-559 PO (12:03)
[2022-04-22] MEDS ORDERED: ROBITUSSIN PO (12:03)
[2022-04-22] MEDS ORDERED: BISA10SU11 PR (12:03)
[2022-04-22] MEDS ORDERED: LOPE-232 PO (12:03)
[2022-04-22] MEDS ORDERED: NICO-703 TD (12:03)
[2022-04-22] MEDS ORDERED: OMEP20 PO (12:03)
[2022-04-22] MEDS ORDERED: HYDR50CA7 PO (12:03)
== END 2022-04-19 15:26 | DRG 885 ==
LOC: EMS 11:49 → 3EX 17:36
PROVIDERS: ADMIT Psychiatry & Neurology Child & Adolescent Psychiatry; ATTEND Psychiatry & Neurology Child & Adolescent Psychiatry
DX: F25.1 Schizoaffective disorder, depressive type (principal); F31.9 Bipolar disorder, unspecified; F41.9 Anxiety disorder, unspecified; J44.9 Chronic obstructive pulmonary disease, unspecified; M10.9 Gout, unspecified; Z20.822 Contact with and (suspected) exposure to COVID-19; Z59.00 Homelessness unspecified; Z87.891 Personal history of nicotine dependence; Z91.199 Patient's noncompliance with other medical treatment and regimen due to unspecified reason; Z90.81 Acquired absence of spleen; Z88.8 Allergy status to other drugs, medicaments and biological substances; Z91.010 Allergy to peanuts
CPT/HCPCS: 71100; 80053; 80164; 85025; G0378; G0480; J3535; Q9967

== ENCOUNTER 2022-05-20 21:02 | Emergency (ER) | payer MEDICARE, MEDICAID ==
[~2022-05-20 21:02] MED LIST changes: +BECL10.62 IH; +BUPR-113 PO; -BUPR-72 PO; +DOCU100C33 PO; +FLUT1AER IH; +MONT-35 PO; +OMEP20 PO; +PHEN100C23 PO; +QUET100T34 PO; +QUET200T PO; -QUET200T30 PO; +TRAM-559 PO; +VENL-193 PO
[2022-05-20] MEDS ORDERED: ACETAMINOPHEN 500 MG TABLET PO ONE (22:30)
[2022-05-20] MEDS ORDERED: LIDOCAINE 5% TRANSDERMAL PATCH TD ONE (22:30)
[2022-05-20 23:00] VITALS: BP 142/71
== END 2022-05-21 01:13 | disposition home or self-care (01) ==
LOC: EMS 21:04
DX: M54.50 Low back pain, unspecified (principal); J45.909 Unspecified asthma, uncomplicated; F31.9 Bipolar disorder, unspecified; J44.9 Chronic obstructive pulmonary disease, unspecified; F20.9 Schizophrenia, unspecified; F17.210 Nicotine dependence, cigarettes, uncomplicated; Z98.890 Other specified postprocedural states; Z90.81 Acquired absence of spleen; Z88.6 Allergy status to analgesic agent; Z91.010 Allergy to peanuts; Z88.2 Allergy status to sulfonamides
CPT/HCPCS: 99283

== ENCOUNTER 2022-05-21 02:18 | Emergency (ER) | payer MEDICARE, MEDICAID ==
[~2022-05-21] VITALS: Ht 180.3 cm; Wt 77.0 kg
[2022-05-21] MEDS ORDERED: LORazepam 1 MG TABLET PO ONE (03:15)
[2022-05-21] MEDS ORDERED: LORazepam 0.5 MG TABLET PO ONE (03:30)
[2022-05-21 04:07] LABS: COVID AG,FIA SOURCE NASAL SWAB
[2022-05-21] MEDS ORDERED: OLANZapine 5 MG RAPDIS TABLET PO ONE (06:45)
[2022-05-21] MEDS ORDERED: ACETAMINOPHEN 325 MG TABLET PO ONE (06:45)
[2022-05-21 07:05] LABS: BASOPHILS % (AUTO) 0.3 % (0.0-2.0); EOSINOPHILS % (AUTO) 0.8 % (1.0-6.0); HEMATOCRIT 45.8 % (41-53); HEMOGLOBIN 15.6 g/dL (13.5-17.5); LYMPHOCYTES # (AUTO) 1.8 K/uL (1.0-4.8); LYMPHOCYTES % (AUTO) 21.1 % (22.0-44.0); MEAN CORPUSCULAR HEMOGLOBIN 32.3 pg (26.0-34.0); MEAN CORPUSCULAR HGB CONC 33.9 G/dL (31.0-37.0); MEAN CORPUSCULAR VOLUME 95 fL (80-100); MONOCYTES % (AUTO) 11.2 % (2.0-9.0); NEUTROPHILS # (AUTO) 5.8 K/uL (1.8-7.7); NEUTROPHILS % (AUTO) 66.6 % (40.0-70.0); PLATELET COUNT (AUTO) 311 K/uL (150-450); RED BLOOD CELL COUNT(AUTO) 4.82 MIL/uL (4.50-5.90); RED CELL DISTRIBUTION WIDTH 15.3 % (11.5-14.5)
[2022-05-21 07:24] LABS: ANION GAP 9 mmol/L (8-16); CALCIUM, TOTAL 8.9 mg/dL (8.8-10.5); CARBON DIOXIDE 24 mmol/L (22-29); CHLORIDE 102 mmol/L (98-107); CREATININE 0.71 mg/dL (0.60-1.30); GLOMERULAR FILTR. RATE CALC > 60 mL/min (>60); GLUCOSE,RANDOM 115 mg/dL (70-110); POTASSIUM 3.8 mmol/L (3.5-5.1); SODIUM SERUM 135 mmol/L (136-145); UREA NITROGEN, BLOOD 13 mg/dL (7-18)
[2022-05-21 07:33] LABS: ALANINE AMINOTRANSFERASE 33 U/L (12-78); ALBUMIN 3.9 g/dL (3.4-5.0); ALKALINE PHOSPHATASE 96 U/L (46-116); BILIRUBIN,TOTAL 0.3 mg/dL (0.1-1.0); TOTAL PROTEIN, SERUM 8.2 g/dL (6.4-8.2); VALPROIC ACID 8 mcg/mL (50-100)
[2022-05-21 07:53] LABS: ASPARTATE AMINOTRANSFERASE 21 U/L (15-37)
[2022-05-21 08:13] LABS: APPEARANCE,URINE CLEAR (CLEAR); BILIRUBIN,URINE NEGATIVE (NEGATIVE); GLUCOSE, URINE (UA) NEGATIVE (NEGATIVE); KETONES,URINE NEGATIVE (NEGATIVE); LEUKOCYTE ESTERASE ,URINE TRACE (NEGATIVE); NITRATE,URINE NEGATIVE (NEGATIVE); OCCULT BLOOD,URINE NEGATIVE (NEGATIVE); PROTEIN,URINE NEGATIVE (NEGATIVE); SPECIFIC GRAVITIY, URINE 1.019 (1.003-1.030); UROBILINOGEN,URINE <=1.0 mg/dL (<=1.0)
[2022-05-21 08:18] LABS: AMPHET/METH SCREEN,URINE NEGATIVE (NEGATIVE); BARBITURATE SCREEN, URINE NEGATIVE (NEGATIVE); BENZODIAZEPINES SCREEN,URINE NEGATIVE (NEGATIVE); CANNABINOID SCREEN,URINE NEGATIVE (NEGATIVE); COCAINE SCREEN,URINE NEGATIVE (NEGATIVE); METHADONE SCREEN, URINE NEGATIVE (NEGATIVE); OPIATE SCREEN,URINE NEGATIVE (NEGATIVE)
[2022-05-21 08:19] LABS: PHENCYCLIDINE SCREEN,URINE NEGATIVE (NEGATIVE)
[2022-05-21 08:56] LABS: BACTERIA,URINE None Seen /HPF (None Seen); RBC,URINE 0-2 /HPF (0-2); WBC,URINE 0-2 /HPF (0-5)
[2022-05-21 14:22] VITALS: BP 128/80
== END 2022-05-21 14:25 | disposition home or self-care (01) ==
LOC: EMS 02:20
DX: M54.50 Low back pain, unspecified (principal); F25.9 Schizoaffective disorder, unspecified; J45.909 Unspecified asthma, uncomplicated; F31.9 Bipolar disorder, unspecified; J44.9 Chronic obstructive pulmonary disease, unspecified; F17.210 Nicotine dependence, cigarettes, uncomplicated; Z98.890 Other specified postprocedural states; Z90.81 Acquired absence of spleen; Z91.010 Allergy to peanuts; Z88.6 Allergy status to analgesic agent; Z88.2 Allergy status to sulfonamides; Z20.822 Contact with and (suspected) exposure to COVID-19
CPT/HCPCS: 99284; 72131; 87426; 80053; 80164; 85025; 36415; 81001; 80307 ×2; G0480